=== PATIENT | male | born 1950 | race Caucasian/White ===

== ENCOUNTER 2016-10-22 14:11 | Inpatient (IN) | payer MEDICARE ==
[2016-10-22] MEDS ORDERED: Calcium Carbonate 500 MG ChewTAB PO PRN (19:05)
[2016-10-22] MEDS ORDERED: Loperamide HCl 2 MG CAP PO PRN (19:05)
[2016-10-22] MEDS ORDERED: Guaifenesin DM 100-10/5 ML UDCUP PO PRN (19:05)
[2016-10-22] MEDS ORDERED: Ondansetron ODT 4 MG TAB PO PRN (19:05)
[2016-10-22] MEDS: Meropenem 1 GM in Sodium Chloride 0.9% 100 ML IVPB SCH (20:45)
[2016-10-22] MEDS: Acetaminophen/Codeine 30-300mg Tablet PO PRN (20:46)
[2016-10-22] MEDS ORDERED: Meropenem 1 GM VIAL IVPB SCH (22:00)
--- NOTE | 2016-10-23 03:18 | HP ---
DATE OF ADMISSION: 10/22/2016 HISTORY OF PRESENT ILLNESS: Mr. Reese is a 65-year-old white male that was initially admitted to [facility] on 10/01/2016. Apparently, he fell and fractured his right patella [place]. He was taken to the surgical suite by Dr. Infante and it was repaired. Postoperatively, he rueda s had a felipa course and saw Dr. Infante on the 10/01/2016. He was sent directly to the emergency r oom and admitted to the hospital for an infection. It has not been eating very well. While in the hospital, he had significant debridement by Dr. Infante. He actually had to have a patellar removed because it was nonviable. On 10/07/2016, Dr. Andrew Jaimes took the patient to the surgical suite because of his peripheral teresa ry disease and did endarterectomy and placed 2 stents on the right side. The patient was noted to h ave gangrene in that leg, but after returning to his circulation, he was much improved. Since then, the patient had been seen by Dr. Palumbo and was started on meropenem 1 gram IV piggyback q.8 hours, because he grew several organisms in his wound culture. Cultures from right knee grew: 1. Pseudomonas. 2. Proteus mirabilis. 3. Enterococcus. The patient has actually slowly improved and is stable enough to transfer to a swing bed for continu ed wound care and continue antibiotics. He will also have a wound VAC evaluated and change every Mo , Friday and Friday. Dr. Palumbo recommended at least 4 weeks of antibiotics to the end of October and then the patient wi ll follow up with all other consultants and decide whether or not continue some type of antibiotic t herapy. PAST MEDICAL HISTORY: 1. Significant for hypertension. 2. Gout. 3. Chronic atrial fibrillation. 4. Left leg DVT, followed by Dr. Mcwilliams and Dr. Marinelli. 5. Recent fracture with nonhealing and polymicrobial infection. SURGICAL HISTORY: Reveals; 1. Tonsillectomy in 1956. 2. Nasal surgery in 1963. 3. Patellar repair in 08/26/2016. 4. Patellar debridement and patellectomy, which was done on 10/03/[address] Jaimes's surgery including right common profunda endarterectomy with bovine patch angioplasty, right common iliac, e xternal iliac artery stent with Smart 8 x 30 x2 postdilated with 7 mm balloon that was done on 10/07. SOCIAL HISTORY: Reveals the patient is a smoker. He also drinks quite a bit of alcohol, but uses n o drugs. FAMILY HISTORY: Reveals the patient's father at age 75 of diabetes and hypertension. The jannette ent's mother at the age of 60 of lung cancer and breast cancer, and the patient has a family hi story of diabetes, hypertension, heart disease and cancer. CURRENT MEDICATIONS: Reveal the patient is presently on the following medications which include; 1. Plavix 75 mg daily. 2. Diltiazem CD 120 mg twice a day. 3. Digoxin 125 mcg daily. 4. Xarelto 10 mg daily. 5. Fluoxetine 10 mg daily. 6. Meropenem 1 gram IV piggyback q.8 hours. 7. Folic acid 1 mg daily. 8. Multivitamin daily. 9. Florastor 250 mg daily. 10. Thiamine 100 mg daily. 11. Aspirin 81 mg daily. 12. Protonix 40 mg b.i.d. 13. Flexeril 10 mg t.i.d. p.r.n. muscle spasm. 14. Tylenol with codeine #3 one q.6 hours p.r.n., severe pain. ALLERGIES: The patient has no known drug allergies. REVIEW OF SYSTEMS: Reveal the patient actually is doing very well. He is eating better. He has ga ined 6 pounds over the last week. He denies any fever or chills, denies any headaches. He states he is very weak and he has pain in h is right knee at times. Otherwise, he denies any visual changes, denies any hearing changes or ignacia rgy problems. Denies any increase in cough, cold, congestion or sputum production. Denies any ches t pain, palpitations, racing or skipping heart beat or slow heartbeat. Denies any nausea, vomiting or diarrhea. He states his stomach is actually doing better except he does have some loose stools. He was constipated while he was in the hospital 2 weeks ago. Denies any problems. Denies any a rthritis problems except for right knee pain where he had patellectomy. He does complain of brittle skin and multiple bruising. PHYSICAL EXAMINATION: GENERAL: This is a well-developed, well-nourished, very thin white male in no apparent distress at this time. HEENT: Reveals normocephalic, nontraumatic cranium. Pupils are equally round and reactive. Extrao cular movements are intact. Nose and throat are slightly dry. NECK: Supple, without masses, nodes or bruits. LUNGS: Chest is clear to auscultation, but distant. HEART: Reveals an irregularly irregular rate and rhythm without murmurs, gallops or rubs. ABDOMEN: Soft, nontender, without organomegaly, normal bowel sounds are noted. No rebound or guard ing is noted. : Deferred. EXTREMITIES: Reveal no clubbing, cyanosis or edema. The right leg is braced and has a wound VAC co nnected. PICC line is clear and nontender. NEUROLOGIC: The patient is nonfocal. ASSESSMENT: 1. Polymicrobial postoperative wound infection, surrounding abscess, status post I\T\D, requiring a wound VAC. 2. Severe peripheral artery disease, status post vascular endarterectomy and stents x2. 3. Hypertension. 4. Chronic atrial fibrillation. 5. Chronic anticoagulation. 6. Peripheral vascular disease. 7. Benign prostatic hypertrophy. 8. Calorie protein malnutrition. 9. Generalized weakness. 10. Anxiety depressive disorder. 11. Gout. PLAN: 1. Continue at least 4 more weeks of antibiotics per Dr. Palumbo. 2. Continue physical therapy and occupational therapy as tolerated. The patient is weightbearing a s tolerated. 3. Continue wound care and wound VAC. 4. Continue present medications. 5. Laboratory tomorrow morning. 6. DVT and stress ulcer prophylaxis. 7. Decubitus precautions.
[2016-10-23] MEDS: Acetaminophen/Codeine 30-300mg Tablet PO PRN ×3 (03:55→21:18)
[2016-10-23 05:44] LABS: #Basophils 0.1 thou/uL (0.0-0.2); #Eosinphils 0.2 thou/uL (0.0-0.7); #Lymphocytes 1.1 thou/uL (1.20-3.40); #Neutrophils 6.5 thou/uL (1.40-6.50); %Basophils 1.4 % (0.0-1.0); %Eosinophils 2.4 % (0.0-10.0); %Lymphocytes 12.7 % (21.0-51.0); %Monocytes 10.7 % (0.0-10.0); Hematocrit 29.1 % (42.0-52.0); Mean Platelet Volume 5.2 fL (7.4-10.4); Red Blood Cell (RBC) Count 3.03 mill/uL (4.70-6.10); White Blood Cell (WBC) Count 8.9 thou/uL (4.8-10.8)
[2016-10-23] MEDS: Meropenem 1 GM in Sodium Chloride 0.9% 100 ML IVPB SCH ×3 (06:10→21:19)
[2016-10-23 06:24] LABS: ALT (SGPT) 15 U/L (0-55); AST (SGOT) 17 U/L (5-34); Alkaline Phosphatase 85 U/L (40-150); Anion Gap 12 mmol/L (10-20); BUN (Urea Nitrogen) 15 mg/dL (8.4-25.7); Bilirubin, Total 0.5 mg/dL (0.2-1.2); Calc. Creatinine Clearance 106 mL/min (70-130); Calcium 8.6 mg/dL (7.8-10.44); Carbon Dioxide 25 mmol/L (23-31); Chloride 108 mmol/L (98-107); Estimated GFR-MDRD Greater than 90; Globulin 3.2 g/dL (2.4-3.5)
[2016-10-23] MEDS: Multivitamin W/ Minerals 1 TAB PO SCH (08:58)
[2016-10-23] MEDS: Saccharomyces boulardii 250 MG CAP PO SCH (08:58)
[2016-10-23] MEDS: FLUoxetine HCl 10 MG CAP PO SCH (08:58)
[2016-10-23] MEDS: Clopidogrel Bisulfate 75 MG TAB PO SCH (08:59)
[2016-10-23] MEDS: Rivaroxaban 10 MG TAB PO SCH (08:59)
[2016-10-23] MEDS: Folic Acid 1 MG TAB PO SCH (09:01)
[2016-10-23] MEDS: Digoxin 0.125 MG TAB PO SCH (09:01)
[2016-10-23] MEDS: Acetaminophen 325 MG TAB PO PRN (09:57)
[2016-10-23] MEDS: Cyclobenzaprine 10 MG TAB PO PRN (09:57)
--- NOTE | 2016-10-23 21:34 | PRG ---
DATE OF SERVICE: 10/23/2016 HISTORY OF PRESENT ILLNESS: Mr. Yeager is a very pleasant 65-year-old white male admitted to [facility] after he fell, fractured his right patella. Eventually, it did not heal after a surgi yesika repair of that. He is having patella removed and wound VAC placed. Dr. Jaimes also did a surgic al peripheral artery endarterectomy and two stents on the right side. He was transferred here for p hysical therapy and occupational therapy. He had been growing several organisms including Pseudomon as, Proteus and Enterococcus. He is presently on meropenem 1 gram q.8 hours. SUBJECTIVE: The patient states he is eating better, he is feeling better, he is much stronger. He has no complaints today. PHYSICAL EXAMINATION: VITAL SIGNS: Reveal blood pressure is 140/91, pulse 72, respirations 18, O2 sat 99% on room air. T -max is 97.4. GENERAL: This is a well-developed, very thin white male in no apparent distress at this time. HEENT: Reveals normocephalic, nontraumatic cranium. Pupils are equally round and reactive. Extrao cular movements are intact. Nose and throat are slightly dry. NECK: Supple, without masses, nodes or bruits. LUNGS: Chest is clear to auscultation. No rales, rhonchi or wheezes are heard. HEART: Reveals a distant, irregularly irregular rate and rhythm without murmurs, gallops or rubs. ABDOMEN: Scaphoid, soft, nontender, without organomegaly, normal bowel sounds are noted. No reboun d or guarding is noted. GENITOURINARY: Deferred. EXTREMITIES: Reveal right leg is still braced with the wound VAC connected. PICC line is cleared a nd nontender. Patient did get in a wheelchair today. NEUROLOGIC: He is nonfocal. IMPRESSION: 1. Polymicrobial postoperative wound infection with surrounding abscess status post incision and dr navarrete requiring wound VAC. 2. Severe peripheral artery disease status post vascular endarterectomy, stents x2. 3. Hypertension. 4. Chronic atrial fibrillation. 5. Chronic anticoagulation. 6. Peripheral vascular disease. 7. Benign prostatic hypertrophy. 8. Calorie protein malnutrition. 9. Generalized weakness. 10. Anxiety depressive disorder. 11. Gout. PLAN: 1. Continue at least 4 more weeks of antibiotics, meropenem per Dr. Palumbo. 2. Continue physical therapy and occupational therapy. 3. Continue wound care, wound VAC. 4. Continue present medications. 5. Laboratory is pending. 6. DVT and stress ulcer prophylaxis. 7. Decubitus precautions.
[2016-10-24] MEDS: Acetaminophen/Codeine 30-300mg Tablet PO PRN ×3 (05:21→20:59)
[2016-10-24] MEDS: Meropenem 1 GM in Sodium Chloride 0.9% 100 ML IVPB SCH ×3 (05:22→21:00)
[2016-10-24] MEDS: Digoxin 0.125 MG TAB PO SCH (08:27)
[2016-10-24] MEDS: Saccharomyces boulardii 250 MG CAP PO SCH (08:27)
[2016-10-24] MEDS: FLUoxetine HCl 10 MG CAP PO SCH (08:27)
[2016-10-24] MEDS: Rivaroxaban 10 MG TAB PO SCH (08:28)
[2016-10-24] MEDS: Multivitamin W/ Minerals 1 TAB PO SCH (08:28)
[2016-10-24] MEDS: Clopidogrel Bisulfate 75 MG TAB PO SCH (08:28)
[2016-10-24] MEDS: Folic Acid 1 MG TAB PO SCH (08:28)
[2016-10-24] MEDS: Acetaminophen 325 MG TAB PO PRN (08:39)
[2016-10-24] MEDS: Cyclobenzaprine 10 MG TAB PO PRN (08:39)
--- NOTE | 2016-10-24 20:13 | PRG ---
DATE OF SERVICE: 10/24/2016 DATE OF ADMISSION: 10/22/2016 HISTORY OF PRESENT ILLNESS: Mr. Reese is a very pleasant 65-year-old white male that fell and frac tured his right patella. He had surgically repaired, but became infected and was eventually removed . He also had significant peripheral artery disease and had 2 stents and right sided endarterectomy by Dr. Jaimes. Eventually, was stabilized and transferred to physical therapy and occupational health and safety officer apy at [facility]. He was also noted be growing Pseudomonas, Proteus and Enterococcus in his wounds, so he is on meropenem 1 gram every [address] Palumbo. SUBJECTIVE: The patient is doing better today. He is feeling better. He did go to hyperbaric eval uation by Dr. Woods. They evaluated and repacked his wound and have him scheduled for another off ice visit on Friday about 10:30. He has no complaints. VITAL SIGNS: Revealed blood pressure this morning 148/92, pulse 72-93, respirations 18, O2 saturati on 98%, temperature 98.0. PHYSICAL EXAMINATION: GENERAL: This is a well-developed, very thin white male who is eating much better, in no apparent d istress at this time. HEENT: Reveals normocephalic, nontraumatic cranium. Pupils are equally round. Nose and throat are slightly dry. NECK: Supple, without masses, nodes or bruits. CHEST: Clear to auscultation. No rales, rhonchi or wheezes are heard. HEART: Irregularly irregular rate and rhythm without murmurs, gallops or rubs. ABDOMEN: Scaphoid, soft, nontender, without organomegaly. GENITOURINARY: Deferred. EXTREMITIES: Reveal right leg still in the brace, wound VAC reconnected, and a PICC line is clear a nd nontender. NEUROLOGIC: Nonfocal. IMPRESSION: 1. Polymicrobial postop wound infection with surrounding abscess status post incision and drainage requiring wound VAC. Incision of the patella has been done. 2. Severe peripheral artery disease status post vascular endarterectomy and stents x2 by Dr. Jaimes. 3. Hypertension. 4. Chronic atrial fibrillation. 5. Chronic anticoagulation because of atrial fibrillation. 6. Peripheral vascular disease. 7. Benign prostatic hypertrophy. 8. Calorie protein malnutrition. 9. Generalized weakness. 10. Anxiety depressive disorder. 11. Gout. PLAN: 1. Four weeks of meropenem 1 gram every [address] Palumbo. 2. Continue physical therapy and occupational. 3. Continue wound care and wound VAC. 4. Appreciate consult from Dr. Woods. 5. Continue present medications. 6. Continue deep venous thrombosis and stress ulcer prophylaxis. 7. Continue decubitus precaution. 8. Continue to encourage the patient to eat well. 9. Continue chronic anticoagulation.
[2016-10-25] MEDS: Cyclobenzaprine 10 MG TAB PO PRN ×2 (01:43→09:56)
[2016-10-25] MEDS: Acetaminophen 325 MG TAB PO PRN ×2 (01:43→09:56)
[2016-10-25] MEDS: Meropenem 1 GM in Sodium Chloride 0.9% 100 ML IVPB SCH ×3 (05:18→21:40)
[2016-10-25] MEDS: Acetaminophen/Codeine 30-300mg Tablet PO PRN ×3 (05:18→22:58)
[2016-10-25] MEDS: Clopidogrel Bisulfate 75 MG TAB PO SCH (08:40)
[2016-10-25] MEDS: FLUoxetine HCl 10 MG CAP PO SCH (08:40)
[2016-10-25] MEDS: Rivaroxaban 10 MG TAB PO SCH (08:40)
[2016-10-25] MEDS: Multivitamin W/ Minerals 1 TAB PO SCH (08:40)
[2016-10-25] MEDS: Folic Acid 1 MG TAB PO SCH (08:40)
[2016-10-25] MEDS: Digoxin 0.125 MG TAB PO SCH (08:41)
[2016-10-25] MEDS: Saccharomyces boulardii 250 MG CAP PO SCH (08:42)
--- NOTE | 2016-10-25 15:20 | PRG ---
DATE OF ADMISSION: 10/22/2016 DATE OF SERVICE: 10/25/2016 HISTORY OF PRESENT ILLNESS: Mr. Reese is a 65-year-old pleasant white male who fell and fractured his right patella. He had a surgical repair became infected. He developed a significant infection abscess and actually had his patellar movement. Also was found to have significant peripheral arter y disease and had 2 stents in right side endarterectomy, lower extremity endarterectomy done by Dr. Jaimes. Eventually stabilized and transferred to [facility] for physical therapy and occupational therapy. He has been noted to be growing Pseudomonas, Proteus, Enterococcus, was star gurdeep on meropenem 1 gram q[address] Palumbo for a month. SUBJECTIVE: The patient has no complaints today, states he is eating well. He is feeling better. He had a good bowel movement this morning. Wound care just repacked his wound says is looking well. OBJECTIVE: VITAL SIGNS: Blood pressure is 152/85 this morning, pulse 87 and 96, respirations 20, O2 sat 93%, t emperature max is 97.0. Wound cultures revealed no growth at 36 hours. GENERAL: This is a well-developed, well-nourished, very pleasant, thin white male in no apparent di stress at this time. HEENT: Reveals normocephalic, nontraumatic cranium. Pupils are equally round and reactive. Extrao cular movements intact. Nose and throat slightly dry. NECK: Supple, without masses, nodes or bruits. CHEST: Clear to auscultation. No rales, rhonchi, wheezes are heard. HEART: Reveals a regular rate and rhythm without murmurs, gallops or rubs. ABDOMEN: Soft, nontender, without organomegaly, normal bowel sounds are noted. No rebound or guard ing is noted. : Deferred. EXTREMITIES: Reveal no clubbing, cyanosis or edema. Right leg is still brace. Wound VAC is still working. PICC line is still working. NEUROLOGIC: Patient is nonfocal. IMPRESSION: 1. Polymicrobial postop wound infection with surrounding abscess status post incision and drainage. Wound VAC still needed. Patella has been removed. 2. Severe peripheral artery disease status post vascular endarterectomy and stents x2 by Dr. Jaimes. 3. Hypertension. 4. Chronic atrial fibrillation. 5. Chronic anticoagulation because of atrial fibrillation. 6. Peripheral vascular disease. 7. Benign prostatic hypertrophy. 8. Rosa Isela protein malnutrition. 9. Generalized weakness. 10. Anxiety depressive disorder. 11. Gout. PLAN: 1. Four weeks of meropenem 1 gram q.[address] Palumbo. 2. Continue physical therapy and occupational therapy. 3. Continue wound care and wound VAC. 4. Appreciate consult from Dr. Woods. 5. Continue present medication. 6. Continue deep venous thrombosis and stress ulcer prophylaxis. 7. Continue decubitus precautions. 8. Continued care. 9. Continue chronic anticoagulation.
[2016-10-26] MEDS: Meropenem 1 GM in Sodium Chloride 0.9% 100 ML IVPB SCH ×3 (06:13→21:30)
[2016-10-26] MEDS: Folic Acid 1 MG TAB PO SCH (09:13)
[2016-10-26] MEDS: Saccharomyces boulardii 250 MG CAP PO SCH (09:14)
[2016-10-26] MEDS: FLUoxetine HCl 10 MG CAP PO SCH (09:14)
[2016-10-26] MEDS: Digoxin 0.125 MG TAB PO SCH (09:14)
[2016-10-26] MEDS: Clopidogrel Bisulfate 75 MG TAB PO SCH (09:15)
[2016-10-26] MEDS: Multivitamin W/ Minerals 1 TAB PO SCH (09:15)
[2016-10-26] MEDS: Rivaroxaban 10 MG TAB PO SCH (09:15)
[2016-10-26] MEDS: Acetaminophen 325 MG TAB PO PRN (09:16)
[2016-10-26] MEDS: Milk Of Magnesia 30 ML UDCUP PO PRN (18:37)
[2016-10-26] MEDS: Acetaminophen/Codeine 30-300mg Tablet PO PRN (22:18)
--- NOTE | 2016-10-26 23:43 | PRG ---
DATE OF SERVICE: 10/26/2016 HISTORY: Mr. Reese is a very pleasant 65-year-old white male who fell fracturing right patella. H e was surgically repaired, but then became infected. He was admitted to [facility] and had patella removed. While in the hospital, he had significant peripheral artery disease and Dr. Jaimes did right-sided lower extremity endarterectomy along with 2 stents. He was eventually stabilized a nd transferred to [facility] to continue on meropenem 1 g q.[address] Palumbo for one m ont for him growing Pseudomonas Proteus, Enterococcus in his knee. SUBJECTIVE: The patient states he is doing better. He has no complaints today. He is eating well. He is not constipated and his wound is less painful. OBJECTIVE: VITAL SIGNS: Today, reveal blood pressure this morning 134/70, pulse 89-98, respirations 20, O2 sat uration 97%. T-max is 96.6. GENERAL: This is a well-developed, well-nourished, thin white male in no apparent distress at this time. HEENT: Reveals normocephalic, nontraumatic cranium. Pupils are equal, round, and reactive. Extrao cular movements intact. Nose and throat slightly dry. NECK: Supple, without masses, nodes or bruits. CHEST: Clear to auscultation. No rales, rhonchi, wheezes or cough is heard. HEART: Reveals an irregularly irregular rate and rhythm without murmurs, gallops or rubs. ABDOMEN: Soft, nontender, without organomegaly, normal bowel sounds are noted. No rebound or guard ing is noted. GENITOURINARY: Deferred. EXTREMITIES: Reveal no clubbing, cyanosis or edema. Right leg is still braced, wound VAC is still working. PICC line is still working. NEUROLOGIC: The patient is nonfocal. IMPRESSION: 1. Polymicrobial postoperative infection with surrounding abscess status post incision and drainage and removal of the patella. 2. Wound VAC. 3. Severe peripheral artery disease, status post right lower extremity vascular endarterectomy and stents x2 by Dr. Jaimes. 4. Hypertension. 5. Chronic anticoagulation because of atrial fibrillation. 6. Peripheral vascular disease. 7. Benign prostatic hypertrophy. 8. Protein malnutrition. 9. Generalized weakness. 10. Anxiety depressive disorder. 11. Gout. PLAN: 1. Four weeks of meropenem q.[address] Palumbo. 2. Continue physical therapy and occupational therapy. 3. Continue wound care and wound VAC. 4. Appreciate consult from Dr. Woods. 5. Continue present medication. 6. Continue deep venous thrombosis and stress ulcer prophylaxis. 7. Continue decubitus precautions. 8. Continue care. 9. Continued anticoagulation.
[2016-10-27] MEDS: Meropenem 1 GM in Sodium Chloride 0.9% 100 ML IVPB SCH ×3 (06:20→21:50)
--- NOTE | 2016-10-27 08:08 | PRG ---
DATE OF SERVICE: 10/27/2016 HISTORY OF PRESENT ILLNESS: Mr. Reese is a very pleasant 65-year-old white male unfortunately fell and fractured his right patella. He had surgical repair, but unfortunately became infected. He rueda s been admitted back to [place] and had the patella removed. While he is in the hospital, he had significant peripheral artery disease. Dr. Jaimes did a right-sided lower extremity endarterectomy along with two stents. Eventually stabilized and transferred to [facility] to continue his meropenem 1 gram q.[address] Palumbo for one month. He has been growing Pseudomonas, Proteus a nd Enterococcus in his knee. SUBJECTIVE: The patient states he is doing well. His knee does not bother him very much. He has l ess swelling. He is eating well and he has no complaints. PHYSICAL EXAMINATION: VITAL SIGNS: Reveal blood pressure last night was 114/68, pulse 88-98, respirations 19, O2 sat 97%, temperature 96.7. GENERAL: This is a well-developed, well-nourished, very thin white male, in no apparent distress at this time. HEENT: Reveals normocephalic, nontraumatic cranium. Pupils are equally round and reactive. Nose a nd throat are slightly dry. Extraocular movements are intact. NECK: Supple, without masses, nodes or bruits. LUNGS: Chest clear to auscultation. No rales, rhonchi, wheeze or cough is heard. HEART: Reveals an irregularly irregular rate and rhythm without murmurs, gallops or rubs. ABDOMEN: Scaphoid, soft, nontender, without organomegaly, normal bowel sounds are noted. No reboun d or guarding is noted. GENITOURINARY: Deferred. EXTREMITIES: Reveal no clubbing, cyanosis or edema. Right leg is still braced. The patient still has a wound VAC on. PICC line is still working well. NEUROLOGIC: The patient is nonfocal. IMPRESSION: 1. Multiple bacteria including Pseudomonas, Proteus, Enterococcus growing in his knee. 2. Status post abscess, I\T\D and removal of patella. 3. Continue wound VAC. 4. Severe peripheral artery disease, status post right lower extremity vascular endarterectomy, hien nts x2 by Dr. Jaimes. 5. Hypertension. 6. Chronic anticoagulation because of atrial fibrillation on Xarelto. 7. Peripheral vascular disease. 8. Benign prostatic hypertrophy. 9. Protein malnutrition. 10. Generalized weakness. 11. Anxiety and depressive disorder. 12. Gout. PLAN: 1. Continue for full 4 weeks of meropenem q.[address] Palumbo. 2. Continue physical therapy and occupational therapy. 3. Continue wound care and wound VAC. 4. Continue present medications. 5. Continue deep venous thrombosis and stress ulcer prophylaxis. 6. Continue decubitus care. 7. Continue anticoagulation. 8. The patient has appointment tomorrow morning with Dr. Woods for TCOMs at 10:30.
[2016-10-27] MEDS: Saccharomyces boulardii 250 MG CAP PO SCH (08:55)
[2016-10-27] MEDS: Clopidogrel Bisulfate 75 MG TAB PO SCH (08:56)
[2016-10-27] MEDS: Digoxin 0.125 MG TAB PO SCH (08:57)
[2016-10-27] MEDS: Rivaroxaban 10 MG TAB PO SCH (08:57)
[2016-10-27] MEDS: Folic Acid 1 MG TAB PO SCH (08:57)
[2016-10-27] MEDS: Multivitamin W/ Minerals 1 TAB PO SCH (08:58)
[2016-10-27] MEDS: FLUoxetine HCl 10 MG CAP PO SCH (08:58)
[2016-10-27] MEDS: Acetaminophen 325 MG TAB PO PRN ×2 (11:23→21:57)
[2016-10-27] MEDS: Acetaminophen/Codeine 30-300mg Tablet PO PRN (20:12)
[2016-10-27] MEDS: Cyclobenzaprine 10 MG TAB PO PRN (21:49)
[2016-10-28] MEDS: Meropenem 1 GM in Sodium Chloride 0.9% 100 ML IVPB SCH ×3 (05:54→21:35)
[2016-10-28] MEDS: Folic Acid 1 MG TAB PO SCH (08:10)
[2016-10-28] MEDS: Rivaroxaban 10 MG TAB PO SCH (08:10)
[2016-10-28] MEDS: Digoxin 0.125 MG TAB PO SCH (08:10)
[2016-10-28] MEDS: Saccharomyces boulardii 250 MG CAP PO SCH (08:10)
[2016-10-28] MEDS: Clopidogrel Bisulfate 75 MG TAB PO SCH (08:10)
[2016-10-28] MEDS: Multivitamin W/ Minerals 1 TAB PO SCH (08:11)
[2016-10-28] MEDS: FLUoxetine HCl 10 MG CAP PO SCH (08:11)
[2016-10-28] MEDS: Acetaminophen/Codeine 30-300mg Tablet PO PRN ×2 (08:16→16:38)
[2016-10-28] MEDS: Acetaminophen 325 MG TAB PO PRN ×3 (08:16→21:35)
--- NOTE | 2016-10-28 12:23 | PRG ---
DATE OF SERVICE: 10/28/2016 HISTORY OF PRESENT ILLNESS: Mr. Reese is a very pleasant 65-year-old white male that unfortunately fell and fractured right patella. He had surgical repair, but unfortunately became infected. He c alexa back to [place] and had a patellar removed. While in the hospital, he also had significant p eripheral artery disease, seen by Dr. Jaimes, did right-sided lower extremity endarterectomy along wi th 2 stents. Eventually stabilized and transferred to [facility] for continued julieta penem every 8 hours till end of October per Dr. Palumbo. He was growing Pseudomonas, Proteus, and En terococcus. Today, he is going to see Dr. Woods for T-COM for evaluation for hyperbaric treatment. He has no complaints today. PHYSICAL EXAMINATION: VITAL SIGNS: Today reveals blood pressure this morning, pending. Yesterday was 117/67, pulse 77, r espirations 19, O2 saturation 96%, and temperature 97.4. GENERAL: This is a well-developed, well-nourished, very pleasant white male in no apparent distress at this time. HEENT: Reveals normocephalic, nontraumatic cranium. Pupils equal, round, and reactive. Extraocula r movements intact. Nose and throat are dry. The patient has multiple dental caries. Extraocular movements are intact. NECK: Supple, without masses, nodes or bruits. LUNGS: Chest is clear but distant. No rales, rhonchi, wheezes or cough is heard. CARDIOVASCULAR: Reveals an irregularly irregular rate and rhythm, but no murmurs, gallops or rubs a re noted. ABDOMEN: Scaphoid, soft, nontender, without organomegaly, normal bowel sounds are noted. No reboun d or guarding is noted. GENITOURINARY: Deferred, incision in the right groin area is much improved. EXTREMITIES: Reveal no clubbing, cyanosis or edema. Right leg is still braced. The patient still has a wound VAC on, PICC line is still working well. NEUROLOGIC: The patient is nonfocal. IMPRESSION: 1. Bacterial infection in the right knee, growing Pseudomonas, Proteus, and Enterococcus. 2. Continue meropenem 1 gram q.[address] Palumbo. 3. Status post abscess incision and drainage and removal of patella. 4. Continue wound VAC. 5. Severe peripheral artery disease status post right lower extremity vascular endarterectomies hien nts x2 by Dr. Jaimes. 6. Hypertension. 7. Chronic anticoagulation because of atrial fibrillation on Xarelto. 8. Peripheral vascular disease. 9. Benign prostatic hypertrophy. 10. Protein malnutrition. 11. Generalized weakness. 12. Gout. 13. Anxiety depressive disorder. PLAN: 1. Continue meropenem today till end of month per Dr. Palumbo. 2. Continue physical therapy and occupational therapy. 3. Continue wound care and wound VAC. 4. Continue present medication. 5. Continue deep venous thrombosis and stress ulcer prophylaxis. 6. Continue decubitus care. 7. Continue anticoagulation. 8. Seeing Dr. Woods, he comes about 10:30.
[2016-10-29] MEDS: Meropenem 1 GM in Sodium Chloride 0.9% 100 ML IVPB SCH ×3 (05:21→21:45)
[2016-10-29] MEDS: Acetaminophen/Codeine 30-300mg Tablet PO PRN ×2 (05:21→19:47)
[2016-10-29] MEDS: Clopidogrel Bisulfate 75 MG TAB PO SCH (08:54)
[2016-10-29] MEDS: Saccharomyces boulardii 250 MG CAP PO SCH (08:58)
[2016-10-29] MEDS: Rivaroxaban 10 MG TAB PO SCH (08:59)
[2016-10-29] MEDS: FLUoxetine HCl 10 MG CAP PO SCH (08:59)
[2016-10-29] MEDS: Folic Acid 1 MG TAB PO SCH (08:59)
[2016-10-29] MEDS: Digoxin 0.125 MG TAB PO SCH (09:00)
[2016-10-29] MEDS: Multivitamin W/ Minerals 1 TAB PO SCH (09:01)
--- NOTE | 2016-10-29 10:24 | PRG ---
DATE OF SERVICE: 10/29/2016 SUBJECTIVE: Mr. Reese is a pleasant 65-year-old male that unfortunately fell and fractured his rig ht patella. He had it surgically repaired, but he became infected. He was sent back to [place] and had his patellar removed. He also had significant peripheral artery disease and Dr. Jaimes did r ight-sided lower extremity endarterectomy along with 2 stents. He eventually stabilized and transfe rred to [facility] for continued physical therapy, occupational therapy and meropene m every 8 hours until the end of October per Dr. Palumbo. He was growing Pseudomonas Proteus and Ent erococcus. He did see Dr. Woods yesterday for TCOMS and evaluated and felt that his O2 sats were excellent in his extremities. He did not need hyperbaric oxygen treatment. He has no complaints today. VITAL SIGNS: Blood pressure this morning was 119/75, pulse 76-87, respirations 18-20, O2 sat 96-98% . T-max is 96.8. PHYSICAL EXAMINATION: GENERAL: This is a well-developed, well-nourished, very pleasant white male in no apparent distress at this time. HEENT: Reveals normocephalic, nontraumatic cranium. Pupils are equally round and reactive. Extrao cular movements intact. Nose and throat slightly dry. NECK: Supple, without masses, nodes or bruits. LUNGS: Chest is clear to auscultation. No rales, no rhonchi, no wheezes are heard. CARDIOVASCULAR: Reveals an irregularly irregular rate and rhythm without murmurs, gallops or rubs. ABDOMEN: Scaphoid, soft, nontender, without organomegaly, normal bowel sounds are noted. No reboun d or guarding is noted. : Deferred. Incision in the right groin still improving and not red or swollen. EXTREMITIES: Reveal no clubbing, cyanosis or edema. Right leg is still braced at the knee. Wound VAC is still in place. PICC line is still working well. NEUROLOGIC: The patient is nonfocal. IMPRESSION: 1. Bacterial infection and right knee growing Pseudomonas Proteus and Enterococcus. 2. Continue meropenem 1 gram q[address] Palumbo until the end of the month. 3. Status post incision and drainage and removal of patella secondary to infection. 4. Continue wound VAC. 5. Severe peripheral artery disease status post right lower extremity vascular endarterectomies and stents x2 by Dr. Jaimes. 6. Hypertension. 7. Chronic anticoagulation because of atrial fibrillation on Xarelto. 8. Peripheral vascular disease. 9. Benign prostatic hypertrophy. 10. Malnutrition. 11. Generalized weakness. 12. Gout. 13. Anxiety depressive disorder. PLAN: 1. Continue meropenem q.8 hours until the end of the month. 2. Continue physical therapy and occupational therapy. 3. Continue wound care and wound VAC. 4. Continue present medications. 5. Continue DVT and stress ulcer prophylaxis. 6. Continue decubitus care. 7. Continue anticoagulation. 8. No hyperbaric.
[2016-10-29] MEDS: Cyclobenzaprine 10 MG TAB PO PRN (21:45)
[2016-10-30] MEDS: Acetaminophen/Codeine 30-300mg Tablet PO PRN ×2 (04:50→22:10)
[2016-10-30] MEDS: Meropenem 1 GM in Sodium Chloride 0.9% 100 ML IVPB SCH ×3 (06:20→21:06)
[2016-10-30] MEDS: Folic Acid 1 MG TAB PO SCH (09:49)
[2016-10-30] MEDS: Saccharomyces boulardii 250 MG CAP PO SCH (09:49)
[2016-10-30] MEDS: Rivaroxaban 10 MG TAB PO SCH (09:49)
[2016-10-30] MEDS: FLUoxetine HCl 10 MG CAP PO SCH (09:49)
[2016-10-30] MEDS: Multivitamin W/ Minerals 1 TAB PO SCH (09:49)
[2016-10-30] MEDS: Clopidogrel Bisulfate 75 MG TAB PO SCH (09:50)
[2016-10-30] MEDS: Digoxin 0.125 MG TAB PO SCH (09:50)
--- NOTE | 2016-10-30 11:27 | PRG ---
DATE OF SERVICE: 10/30/2016 HISTORY OF PRESENT ILLNESS: Mr. Reese is a very pleasant 65-year-old white male that was transferr ed from [facility] after he had a significant patella infection and the patella was removed . He has also had significant peripheral artery disease and Dr. Jaimes did a right-sided lower extre mity endarterectomy along with 2 stents. The patient stabilized and transferred to [facility] for continued physical therapy, occupational therapy, and for antibiotic therapy of merop enem every 8 hours until the end of October per Dr. Palumbo. He was growing Pseudomonas, Proteus, En terococcus in that infection. I did talk with Dr. Woods yesterday. We had a significant discussion about his O2 sats and they w ere good and he did not really qualify for hyperbarics and he did not want to do hyperbarics and she felt that was appropriate. I talked with her again this morning when I ran into her in the [facility]. OBJECTIVE: Vital signs this morning reveals blood pressure 111/74, pulse 78-87, respirations 19-20, O2 sat 96-97%, T-max 97.7. PHYSICAL EXAMINATION: GENERAL: This is a well-developed, well-nourished, pleasant white male in no apparent distress at t his time. HEENT: Reveals normocephalic, nontraumatic cranium. Pupils are equally round and reactive. Extrao cular movements intact. Nose and throat are slightly dry. NECK: Supple, without masses, nodes or bruits. CHEST: Clear to auscultation. No rales, rhonchi or wheezes are heard. CARDIOVASCULAR: Reveals a regular rate and rhythm without murmurs, gallops or rubs. ABDOMEN: Soft, nontender, without organomegaly, normal bowel sounds are noted. No rebound or guard ing is noted. : Deferred. EXTREMITIES: Reveal no clubbing, cyanosis or edema. Right leg is still braced. He just finished h is shower, he is doing well, he is being dry right now. PICC line is still working well, wound VAC is in place. NEUROLOGIC: The patient is nonfocal. IMPRESSION: 1. Bacterial infection of the right knee growing Pseudomonas, Proteus and Enterococcus. 2. On meropenem 1 gram q.8 h. until the end of the month per Dr. Palumbo. 3. Status post incision and drainage and removal of the patella secondary to infection. 4. Wound VAC in place. 5. Severe peripheral artery disease status post right lower extremity vascular endarterectomy and s tents x2 by Dr. Jaimes. 5. Hypertension. 6. Chronic anticoagulation because of atrial fibrillation on Xarelto. 7. Peripheral vascular disease. 8. Benign prostatic hypertrophy. 9. Malnutrition. 10. Generalized weakness. 11. Gout. 12. Anxiety depressive disorder. PLAN: 1. Continue meropenem q.8 hours until the end of the month. 2. Continue physical therapy and occupational therapy. 3. Continue wound care and wound VAC. 4. Continue present medications. 5. Continue deep venous thrombosis and stress ulcer prophylaxis. 6. Continue decubitus care. 7. Continue anticoagulation. 8. Hyperbaric is not indicated at this time.
[2016-10-30] MEDS: Acetaminophen 325 MG TAB PO PRN (16:30)
[2016-10-30] MEDS: Cyclobenzaprine 10 MG TAB PO PRN (22:10)
[2016-10-31] MEDS: Meropenem 1 GM in Sodium Chloride 0.9% 100 ML IVPB SCH ×3 (05:43→21:36)
[2016-10-31] MEDS: Acetaminophen/Codeine 30-300mg Tablet PO PRN ×3 (08:12→21:37)
[2016-10-31] MEDS: Saccharomyces boulardii 250 MG CAP PO SCH (08:15)
[2016-10-31] MEDS: Multivitamin W/ Minerals 1 TAB PO SCH (08:15)
[2016-10-31] MEDS: Clopidogrel Bisulfate 75 MG TAB PO SCH (08:15)
[2016-10-31] MEDS: Digoxin 0.125 MG TAB PO SCH (08:16)
[2016-10-31] MEDS: Rivaroxaban 10 MG TAB PO SCH (08:17)
[2016-10-31] MEDS: FLUoxetine HCl 10 MG CAP PO SCH (08:17)
[2016-10-31] MEDS: Folic Acid 1 MG TAB PO SCH (08:18)
--- NOTE | 2016-10-31 12:24 | PRG ---
DATE OF SERVICE: 10/31/2016 HISTORY OF PRESENT ILLNESS: The patient is a 65-year-old white male that fell and fractured his pat florentin. He was taken to [facility] where he had that repaired. Postoperatively, he got a pa tellar infection and had to go back to the hospital and the patella was removed along with culture a nd sensitivities done. He is growing Pseudomonas Proteus and Enterococcus. The patient was transfe rred here for meropenem 1 gram every 8 hours until the end of October per Dr. Palumbo. The patient has no complaints. He states he is doing much better. He is beginning to transfer much better. VITAL SIGNS: Blood pressure this morning 124/77, pulse of 71 to 83, respirations 20-22, O2 sat 98%, temperature 97.2. PHYSICAL EXAMINATION: GENERAL: This is a well-developed, well-nourished, very thin, almost cachectic white male in no adiel arent distress at this time. HEENT: Reveals normocephalic, nontraumatic cranium. Pupils are equally round and reactive. Extrao cular movements intact. Nose and throat slightly dry. NECK: Supple, without masses, nodes or bruits. CHEST: Clear to auscultation. No rales, rhonchi or wheezes are heard. CARDIOVASCULAR: Reveals a regular rate and rhythm without murmurs, gallops or rubs. ABDOMEN: Scaphoid, soft, nontender, without organomegaly, normal bowel sounds are noted. : Deferred. EXTREMITIES: Reveal no clubbing, cyanosis or edema. Right leg is still braced. He is doing well. He is sitting up in the chair. His PICC line is working well. NEUROLOGIC: He is nonfocal. IMPRESSION: 1. Bacterial infection of the right knee growing Pseudomonas Proteus and Enterococcus. 2. Meropenem 1 gram q.8 h. until the end of the month per Dr. Palumbo. 3. Status post incision and drainage and removal of the patella secondary to infection. 4. Wound VAC placed 5. Severe peripheral artery disease status post right lower extremity vascular endarterectomy and s tents x2 by Dr. Jaimes about 3 weeks ago. 6. Hypertension. 7. Chronic anticoagulation because of atrial fibrillation, on Xarelto. 8. Peripheral vascular disease. 9. Benign prostatic hypertrophy. 10. Malnutrition. 11. Generalized weakness. 12. Gout. 13. Acute anxiety depressive disorder. PLAN: 1. Continue meropenem q.8 hours until the end of the month. 2. Continue physical therapy and occupational therapy. 3. Continue wound care, wound VAC. 4. Continue present medications. 5. Continued deep venous thrombosis and stress ulcer prophylaxis. 6. Continue decubitus care. 7. Continue anticoagulation. 8. Hyperbaric is not indicated.
[2016-10-31] MEDS: Cyclobenzaprine 10 MG TAB PO PRN ×2 (15:03→21:36)
[2016-11-01] MEDS: Acetaminophen/Codeine 30-300mg Tablet PO PRN ×3 (03:06→15:47)
[2016-11-01] MEDS: Cyclobenzaprine 10 MG TAB PO PRN ×2 (03:07→15:47)
[2016-11-01] MEDS: Meropenem 1 GM in Sodium Chloride 0.9% 100 ML IVPB SCH ×3 (05:29→21:48)
[2016-11-01 06:10] LABS: #Basophils 0.1 thou/uL (0.0-0.2); #Eosinphils 0.4 thou/uL (0.0-0.7); #Lymphocytes 1.3 thou/uL (1.20-3.40); #Monocytes 1.2 thou/uL (0.11-0.59); #Neutrophils 5.8 thou/uL (1.40-6.50); %Basophils 1.5 % (0.0-1.0); %Eosinophils 4.4 % (0.0-10.0); %Lymphocytes 14.8 % (21.0-51.0); %Monocytes 13.1 % (0.0-10.0); Hematocrit 26.7 % (42.0-52.0); Mean Platelet Volume 5.7 fL (7.4-10.4); Red Blood Cell (RBC) Count 2.89 mill/uL (4.70-6.10); White Blood Cell (WBC) Count 8.8 thou/uL (4.8-10.8)
[2016-11-01 06:19] LABS: ALT (SGPT) 15 U/L (0-55); AST (SGOT) 17 U/L (5-34); Alkaline Phosphatase 81 U/L (40-150); Anion Gap 14 mmol/L (10-20); BUN (Urea Nitrogen) 25 mg/dL (8.4-25.7); Bilirubin, Total 0.7 mg/dL (0.2-1.2); Calc. Creatinine Clearance 90 mL/min (70-130); Calcium 8.9 mg/dL (7.8-10.44); Carbon Dioxide 24 mmol/L (23-31); Chloride 103 mmol/L (98-107); Estimated GFR-MDRD Greater than 90; Globulin 3.3 g/dL (2.4-3.5); Protein, Total 6.4 g/dL (5.8-8.1)
[2016-11-01] MEDS: FLUoxetine HCl 10 MG CAP PO SCH (09:15)
[2016-11-01] MEDS: Clopidogrel Bisulfate 75 MG TAB PO SCH (09:15)
[2016-11-01] MEDS: Digoxin 0.125 MG TAB PO SCH (09:17)
[2016-11-01] MEDS: Folic Acid 1 MG TAB PO SCH (09:17)
[2016-11-01] MEDS: Rivaroxaban 10 MG TAB PO SCH (09:18)
[2016-11-01] MEDS: Multivitamin W/ Minerals 1 TAB PO SCH (09:18)
[2016-11-01] MEDS: Saccharomyces boulardii 250 MG CAP PO SCH (09:19)
[2016-11-02] MEDS: Cyclobenzaprine 10 MG TAB PO PRN ×2 (05:04→21:24)
[2016-11-02] MEDS: Acetaminophen/Codeine 30-300mg Tablet PO PRN ×3 (05:04→21:23)
[2016-11-02] MEDS: Meropenem 1 GM in Sodium Chloride 0.9% 100 ML IVPB SCH ×3 (05:47→21:24)
[2016-11-02] MEDS: FLUoxetine HCl 10 MG CAP PO SCH (08:26)
[2016-11-02] MEDS: Clopidogrel Bisulfate 75 MG TAB PO SCH (08:26)
[2016-11-02] MEDS: Saccharomyces boulardii 250 MG CAP PO SCH (08:27)
[2016-11-02] MEDS: Multivitamin W/ Minerals 1 TAB PO SCH (08:27)
[2016-11-02] MEDS: Folic Acid 1 MG TAB PO SCH (08:27)
[2016-11-02] MEDS: Rivaroxaban 10 MG TAB PO SCH (08:27)
[2016-11-02] MEDS: Digoxin 0.125 MG TAB PO SCH (08:27)
--- NOTE | 2016-11-02 13:05 | PRG ---
DATE OF SERVICE: 11/02/2016 SUBJECTIVE: Mr. Reese is doing well. He denies any complaints, resting comfortably, tolerating hi s therapy, right knee in an immobilizer and dressing over the right knee cap. OBJECTIVE: VITAL SIGNS: Mr. Reese is afebrile, heart rate is 93, blood pressure is 125/72, respiratory rate i s 20. CARDIOVASCULAR: S1, S2 plus. RESPIRATORY: Normal vesicular breath sounds. ABDOMEN: Soft, nontender, bowel sounds heard in all quadrants. EXTREMITIES: Without cyanosis or clubbing. Right knee in an immobilizer. No neurovascular comprom ise. He states that he is urinating better. LABORATORY VALUES: From yesterday shows a white count of 8.8, H\T\H is 9.1 and 26.7. Chemistry: S odium 137, potassium 4.0, BUN and creatinine is 25 and 0.74. IMPRESSION: 1. Right knee septic arthritis requiring IV antibiotics. 2. Status post I\T\D and removal of the patella. 3. Peripheral vascular disease. 4. Hypertension. 5. Atrial fibrillation. 6. Benign prostatic hypertrophy. PLAN: 1. Continue IV antibiotics. 2. Wound care. 3. Nutritional support. 4. DVT and stress ulcer prophylaxis. 5. Decubitus precautions. 6. Routine laboratory values.
[2016-11-02] MEDS: Acetaminophen 325 MG TAB PO PRN (13:30)
[2016-11-03] MEDS: Meropenem 1 GM in Sodium Chloride 0.9% 100 ML IVPB SCH ×3 (05:49→21:00)
[2016-11-03] MEDS: Digoxin 0.125 MG TAB PO SCH (08:27)
[2016-11-03] MEDS: Multivitamin W/ Minerals 1 TAB PO SCH (08:27)
[2016-11-03] MEDS: Folic Acid 1 MG TAB PO SCH (08:27)
[2016-11-03] MEDS: Clopidogrel Bisulfate 75 MG TAB PO SCH (08:27)
[2016-11-03] MEDS: Rivaroxaban 10 MG TAB PO SCH (08:28)
[2016-11-03] MEDS: FLUoxetine HCl 10 MG CAP PO SCH (08:28)
[2016-11-03] MEDS: Saccharomyces boulardii 250 MG CAP PO SCH (08:28)
[2016-11-03] MEDS: Acetaminophen 325 MG TAB PO PRN ×2 (10:35→18:07)
[2016-11-03] MEDS: Acetaminophen/Codeine 30-300mg Tablet PO PRN ×2 (10:35→18:07)
--- NOTE | 2016-11-03 14:46 | PRG ---
DATE OF SERVICE: 11/03/2016. SUBJECTIVE: Mr. Reese is doing well, tolerating his antibiotics. Denies any complaints. Wound VA C in place. OBJECTIVE: VITAL SIGNS: He is afebrile, heart rate is 76, respirations are 20, blood pressure is 128/70. CARDIOVASCULAR: S1, S2 plus. RESPIRATORY: Normal vesicular breath sounds. ABDOMEN: Soft, nontender, bowel sounds heard in all quadrants. EXTREMITIES: Some bruising noticed in his left upper extremity. Right knee with immobilizer and a wound VAC in place. IMPRESSION: 1. Right knee septic arthritis, requiring removal of the peripherally inserted central catheter taye e and placement of wound vacuum assisted closure. 2. Peripheral vascular disease. 3. Hypertension. 4. Benign prostatic hypertrophy. 5. Atrial fibrillation. PLAN: 1. Continue current medications. 2. IV antibiotics. 3. Nutritional support. 4. Wound VAC. 5. DVT and stress ulcer prophylaxes. 6. Routine laboratory values. 7. Dr. Juaquin Weldon back tonight.
[2016-11-03] MEDS: Milk Of Magnesia 30 ML UDCUP PO PRN (18:10)
[2016-11-03] MEDS: Cyclobenzaprine 10 MG TAB PO PRN (20:58)
[2016-11-04] MEDS: Cyclobenzaprine 10 MG TAB PO PRN ×3 (06:06→20:16)
[2016-11-04] MEDS: Acetaminophen/Codeine 30-300mg Tablet PO PRN ×3 (06:06→20:16)
[2016-11-04] MEDS: Meropenem 1 GM in Sodium Chloride 0.9% 100 ML IVPB SCH ×3 (06:06→22:10)
[2016-11-04] MEDS: Multivitamin W/ Minerals 1 TAB PO SCH (09:19)
[2016-11-04] MEDS: Saccharomyces boulardii 250 MG CAP PO SCH (09:19)
[2016-11-04] MEDS: FLUoxetine HCl 10 MG CAP PO SCH (09:19)
[2016-11-04] MEDS: Rivaroxaban 10 MG TAB PO SCH (09:19)
[2016-11-04] MEDS: Folic Acid 1 MG TAB PO SCH (09:20)
[2016-11-04] MEDS: Digoxin 0.125 MG TAB PO SCH (09:20)
[2016-11-04] MEDS: Clopidogrel Bisulfate 75 MG TAB PO SCH (09:20)
--- NOTE | 2016-11-04 21:53 | PRG ---
DATE OF SERVICE: 11/04/2016 DATE OF ADMISSION: 10/22/2016 HISTORY OF PRESENT ILLNESS: Mr. Reese is a 65-year-old white male who fractured his patella. He w as taken to the [facility] where it repaired, but postoperatively, he got patellar infectio n. He had to go back to the hospital and patella was removed along with culture and sensitivities d one. It grew Pseudomonas Proteus and Enterococcus. He was eventually transferred to [facility] for physical therapy and occupational therapy and meropenem 1 gram every 8 hours until the end of October per Dr. Palumbo. He has no complaints, seems to be doing much better, and began t o transfer better. He states he has had some spasms this morning rather this afternoon on his ankle and muscle spasm. Otherwise, he has no complaints. PHYSICAL EXAMINATION: VITAL SIGNS: Blood pressure is 124/73, pulse 72-78, respirations 20, O2 sat 98% on room air, and T- max is 97.6. GENERAL: This is a well-developed, well-nourished, very pleasant, thin white male in no apparent di stress at this time. HEENT: Reveals normocephalic, nontraumatic cranium. Pupils are equally round and reactive to light and accommodation. Extraocular movements intact. Nose and throat slightly dry. NECK: Supple, without masses, nodes or bruits. CHEST: Clear to auscultation, no rales, rhonchi, wheezes or cough is heard. CARDIOVASCULAR: Reveals an irregularly irregular rate and rhythm without murmurs, gallops or rubs. ABDOMEN: Scaphoid, soft, nontender, without organomegaly, normal bowel sounds are noted. No reboun d or guarding is noted. : Deferred. EXTREMITIES: Reveal no clubbing, cyanosis or edema. Right leg is still braced. He has no signific ant pain. His PICC line works well. NEUROLOGIC: He still intact. IMPRESSION: 1. Bacterial infection of the right knee growing Proteus Pseudomonas and Enterococcus. 2. Meropenem 1 gram q.8 hours until the end of the month per Dr. Palumbo. 3. Status post incision and drainage and removed patellar secondary to infection. 4. Wound VAC. 5. Severe peripheral arterial disease, status post right lower extremity vascular endarterectomy an d stents x2 by Dr. Jaimes. 6. Hypertension. 7. Chronic atrial fibrillation on chronic anticoagulation. 8. Peripheral vascular disease. 9. Benign prostate hypertrophy. 10. Nutritional malnutrition. 11. Generalized weakness. 12. Gout. 13. Acute anxiety depressive disorder. PLAN: 1. Continue meropenem q.8 hours until end october. 2. Continue physical therapy and occupational therapy. 3. Continue wound care, wound VAC. 4. Continue present medication. 5. Continue DVT and stress ulcer prophylaxis. 6. Continue decubitus care. 7. Continue anticoagulation. 8. Hyperbaric still not indicated.
[2016-11-05] MEDS: Meropenem 1 GM in Sodium Chloride 0.9% 100 ML IVPB SCH ×3 (05:39→21:21)
[2016-11-05] MEDS: Cyclobenzaprine 10 MG TAB PO PRN ×2 (06:35→20:36)
[2016-11-05] MEDS: Acetaminophen/Codeine 30-300mg Tablet PO PRN ×2 (06:35→20:35)
[2016-11-05] MEDS: FLUoxetine HCl 10 MG CAP PO SCH (08:43)
[2016-11-05] MEDS: Saccharomyces boulardii 250 MG CAP PO SCH (08:43)
[2016-11-05] MEDS: Multivitamin W/ Minerals 1 TAB PO SCH (08:44)
[2016-11-05] MEDS: Clopidogrel Bisulfate 75 MG TAB PO SCH (08:45)
[2016-11-05] MEDS: Folic Acid 1 MG TAB PO SCH (08:45)
[2016-11-05] MEDS: Rivaroxaban 10 MG TAB PO SCH (08:45)
[2016-11-05] MEDS: Digoxin 0.125 MG TAB PO SCH (08:45)
--- NOTE | 2016-11-05 10:09 | PRG ---
DATE OF SERVICE: 11/05/2016 HISTORY OF PRESENT ILLNESS: The patient is a 65-year-old white male that fell and had a fractured p atella. He was taken to [place] where it was repaired. Postoperatively, he developed infection and eventually had to have patella removed along with I\T\D. He grew Pseudomonas Proteus and Entero coccus. He was transferred to [facility] for physical therapy, occupational therapy , and IV antibiotics for 1 month. He is followed by Dr. Palumbo for his antibiotics. The patient seems to be doing better. He states he is feeling better. VITAL SIGNS: Blood pressure is 107/68, pulse 72-100, respirations 20, O2 sat 94-95%. T-max is 96.7 . PHYSICAL EXAMINATION: GENERAL: This is a well-developed, well-nourished, very pleasant white male in no apparent distress at this time. HEENT: Reveals normocephalic, nontraumatic cranium. Pupils are equally round. Nose and throat sli ghtly dry. NECK: Supple, without masses, nodes or bruits. CHEST: Clear to auscultation. No rales, rhonchi or wheezes are heard. HEART: Heart reveals an irregularly irregular rate and rhythm without murmurs, gallops or rubs. ABDOMEN: Scaphoid, soft, nontender, without organomegaly, normal bowel sounds are noted. No reboun d or guarding is noted. GENITOURINARY: Exam is deferred. EXTREMITIES: Reveal no clubbing, cyanosis or edema. Right leg is still in a knee immobilizer with a wound VAC. The sutures are supposed to be removed tomorrow. PICC line is still working well. NEUROLOGIC: Patient is intact. No focal deficits. IMPRESSION: 1. Bacterial infection right knee growing Proteus, Pseudomonas and Enterococcus. 2. Continue meropenem 1 gram q.8 h. until the end of the month per Dr. Palumbo. 3. Status post incision and drainage, removal patella secondary to infection. 4. Wound VAC. 5. Severe peripheral arterial disease status post right lower extremity vascular endarterectomy and stents x2 by Dr. Jaimes. 6. Hypertension. 7. Chronic atrial fibrillation. 8. Chronic anticoagulation. 9. Peripheral vascular disease. 10. Benign prostatic hypertrophy. 11. Malnutrition. 12. Generalized weakness. 13. Gout. 14. Anxiety depressive disorder. PLAN: 1. We will continue meropenem q.8 hours 1 gram until the end of October. 2. Continue physical therapy and occupational therapy. 3. Continue DVT and stress ulcer prophylaxis. 4. Continue decubitus preventive care. 5. Wound care, wound VAC. 6. Continue present medications. 7. Continue anticoagulant. 8. Hyperbaric still not indicated.
[2016-11-06] MEDS: Meropenem 1 GM in Sodium Chloride 0.9% 100 ML IVPB SCH ×3 (05:02→21:21)
[2016-11-06] MEDS: Clopidogrel Bisulfate 75 MG TAB PO SCH (08:25)
[2016-11-06] MEDS: FLUoxetine HCl 10 MG CAP PO SCH (08:25)
[2016-11-06] MEDS: Digoxin 0.125 MG TAB PO SCH (08:26)
[2016-11-06] MEDS: Rivaroxaban 10 MG TAB PO SCH (08:26)
[2016-11-06] MEDS: Saccharomyces boulardii 250 MG CAP PO SCH (08:26)
[2016-11-06] MEDS: Folic Acid 1 MG TAB PO SCH (08:26)
[2016-11-06] MEDS: Multivitamin W/ Minerals 1 TAB PO SCH (08:26)
[2016-11-06] MEDS: Acetaminophen 325 MG TAB PO PRN (15:35)
[2016-11-06] MEDS: Acetaminophen/Codeine 30-300mg Tablet PO PRN ×2 (15:35→21:22)
--- NOTE | 2016-11-06 15:41 | PRG ---
DATE OF SERVICE: 11/06/2016 HISTORY OF PRESENT ILLNESS: The patient is a 65-year-old white male that fell at home and fractured his patella. He was taken to [facility] where it was repaired. Postoperatively, he unfor tunately developed an infection, eventually had to have I\T\D and washout done and eventually had th e patella removed. He was growing Pseudomonas, Proteus and Enterococcus. He eventually was transfe rred to [facility] for physical therapy, occupational therapy, and IV antibiotics fo r 1 month to the end of October. He is followed by Dr. Palumbo for his antibiotics. The patient seems to be doing better. He states he is feeling better. He has no complaints today. PHYSICAL EXAMINATION: VITAL SIGNS: Today reveal blood pressure is 125/66, pulse 71-108, respirations 20, O2 sat 98%, temp erature 97.0. GENERAL: This is a very thin white male in no apparent distress at this time. HEENT: Reveals normocephalic, nontraumatic cranium. Pupils are equally round and reactive. Extrao cular movements intact. Nose and throat slightly dry. NECK: Supple, without masses, nodes or bruits. LUNGS: Chest is clear to auscultation. No rales, rhonchi or wheezes are heard. CARDIOVASCULAR: Irregularly irregular rate and rhythm without murmurs, gallops or rubs. ABDOMEN: Scaphoid, soft, nontender, without organomegaly, normal bowel sounds are noted. No reboun d or guarding is noted. GENITOURINARY: Deferred. EXTREMITIES: Reveal no clubbing, cyanosis or edema. The right leg is still immobilized with wound VAC on and minimal drainage. Sutures are to be removed this afternoon with therapy. NEUROLOGIC: Patient is intact. He has no focal deficits. IMPRESSION: 1. Bacterial infection of the right knee growing Pseudomonas, Proteus and Enterococcus. 2. Meropenem 1 gram q.8 h., until the end of the of October per Dr. Palumbo. 3. Status post incision and drainage and removal of the patella secondary to infection. 4. Wound VAC in place and intact. 5. Severe peripheral arterial disease status post right lower extremity vascular endarterectomy and stents x2 by Dr. Jaimes. 5. Hypertension. 6. Chronic atrial fibrillation. 7. Chronic anticoagulation. 8. Peripheral vascular disease. 9. Benign prostatic hypertrophy. 10. Malnutrition. 11. Generalized weakness. 12. Gout. 13. Anxiety depressive disorder. PLAN: 1. Continue meropenem q.8 hours until the end of October. 2. Continue physical therapy and occupational therapy. 3. Continue DVT and stress ulcer prophylaxis. 4. Continue decubitus and wound care. 5. Continue wound care along with VAC care. 6. Continue present medication. 7. Continue anticoagulation. 8. Continue PT.
[2016-11-06] MEDS: Cyclobenzaprine 10 MG TAB PO PRN (21:22)
[2016-11-07] MEDS: Meropenem 1 GM in Sodium Chloride 0.9% 100 ML IVPB SCH ×3 (05:11→21:10)
[2016-11-07] MEDS: Saccharomyces boulardii 250 MG CAP PO SCH (08:22)
[2016-11-07] MEDS: Clopidogrel Bisulfate 75 MG TAB PO SCH (08:22)
[2016-11-07] MEDS: Rivaroxaban 10 MG TAB PO SCH (08:22)
[2016-11-07] MEDS: Multivitamin W/ Minerals 1 TAB PO SCH (08:24)
[2016-11-07] MEDS: Digoxin 0.125 MG TAB PO SCH (08:24)
[2016-11-07] MEDS: Acetaminophen/Codeine 30-300mg Tablet PO PRN ×2 (08:24→21:11)
[2016-11-07] MEDS: Cyclobenzaprine 10 MG TAB PO PRN ×2 (08:24→21:12)
[2016-11-07] MEDS: Folic Acid 1 MG TAB PO SCH (08:25)
[2016-11-07] MEDS: FLUoxetine HCl 10 MG CAP PO SCH (08:25)
[2016-11-07] MEDS: Acetaminophen 325 MG TAB PO PRN (11:19)
--- NOTE | 2016-11-07 23:01 | PRG ---
DATE OF ADMISSION: 10/22/2016 DATE OF PROGRESS NOTE: 11/07/2016 HISTORY OF PRESENT ILLNESS: Mr. Reese is a very pleasant 65-year-old white male that was transferr ed to [facility] status post repair of his fractured patella. He got infected and h ad to have an I\T\D done on admission and patella was removed. He was growing Pseudomonas, Proteus, Enterococcus, and was eventually transferred to [facility] for physical therapy, oc cupational therapy, IV antibiotics for a month. He is followed by Dr. Palumbo. Patient seems to be doing better. He has no complaints. He is eating well. PHYSICAL EXAMINATION: VITAL SIGNS: Today reveal blood pressure 138/76, pulse 80-86, respirations 18, O2 saturation 98%, t emperature 97.3. GENERAL: This is a well-developed, well-nourished, very pleasant, thin white male, in no apparent d istress at this time. HEENT: Reveals normocephalic, nontraumatic cranium. Pupils are equal, round, and reactive. Extrao cular movements intact. Nose and throat are slightly dry. NECK: Supple, without masses, nodes or bruits. CHEST: Clear to auscultation. No rales, rhonchi or wheezes are heard. HEART: Reveals a regular rate and rhythm without murmurs, gallops or rubs. ABDOMEN: Scaphoid, soft, nontender, without organomegaly. Normal bowel sounds are noted. No rebou nd or guarding is noted. : Deferred. EXTREMITIES: Reveal right leg still on the knee immobilizer with wound VAC with minimal drainage. Sutures were removed yesterday. The patient has some rubbing on his knee immobilizer and he has got some extra padding there. NEUROLOGIC: He is intact. He has no focal deficits. IMPRESSION: 1. Bacterial infection of the right knee and patella, growing Pseudomonas, Proteus, Enterococcus. Meropenem 1 gram q.8 h. due at the end of the month of October per Dr. Palumbo. 2. Status post incision and drainage and removal of the patella secondary to infection. Wound VAC in place and intact. 3. Severe peripheral artery disease, status post right lower extremity vascular endarterectomy and stents x2 by Dr. Jaimes. 4. Hypertension. 5. Chronic atrial fibrillation. 6. Chronic anticoagulation. 7. Peripheral vascular disease. 8. Benign prostatic hypertrophy. 9. Malnutrition. 10. Generalized weakness. 11. Gout. 12. Anxiety and depressive disorder. PLAN: 1. Continue meropenem q.8 hours until the end of October. 2. We will continue physical therapy and occupational therapy. 3. Continue DVT and stress ulcer prophylaxis. 4. Continue decubitus and wound care. 5. Continue wound care along with wound VAC care. 6. Continue present medications. 7. Continue anticoagulation. 8. Continue physical therapy.
[2016-11-08] MEDS: Meropenem 1 GM in Sodium Chloride 0.9% 100 ML IVPB SCH ×3 (05:38→21:08)
[2016-11-08] MEDS: Acetaminophen/Codeine 30-300mg Tablet PO PRN ×2 (05:39→21:08)
[2016-11-08] MEDS: Cyclobenzaprine 10 MG TAB PO PRN ×2 (05:40→21:08)
[2016-11-08] MEDS: FLUoxetine HCl 10 MG CAP PO SCH (07:43)
[2016-11-08] MEDS: Clopidogrel Bisulfate 75 MG TAB PO SCH (07:45)
[2016-11-08] MEDS: Rivaroxaban 10 MG TAB PO SCH (07:46)
[2016-11-08] MEDS: Saccharomyces boulardii 250 MG CAP PO SCH (07:46)
[2016-11-08] MEDS: Folic Acid 1 MG TAB PO SCH (07:47)
[2016-11-08] MEDS: Digoxin 0.125 MG TAB PO SCH (07:47)
[2016-11-08] MEDS: Multivitamin W/ Minerals 1 TAB PO SCH (07:47)
[2016-11-08] MEDS: Milk Of Magnesia 30 ML UDCUP PO PRN (12:42)
--- NOTE | 2016-11-08 17:55 | PRG ---
DATE OF SERVICE: 11/08/2016 HISTORY OF PRESENT ILLNESS: Mr. Reese is a pleasant 65-year-old white male that unfortunately fell and fractured the patella. He got infected and had to have an I\T\D done and was admitted for IV a ntibiotics. His patella was eventually removed and he was transferred to [facility] for IV m eropenem 1 gram q.8 hours for 1 month. He grew out Pseudomonas, Proteus and Enterococcus. Subjectively, he has no complaints. He is ready for labs tomorrow. OBJECTIVE: VITAL SIGNS: Blood pressure 132/80, pulse 79-86, respirations 16, O2 saturation 99%. T-max 95.6. GENERAL: This is a well-developed, well-nourished, very thin skinny white male in no apparent distr ess at this time. HEENT: Reveals normocephalic, nontraumatic cranium. Pupils are equally round and reactive. Extrao cular movements intact. Nose and throat slightly dry. NECK: Supple, without masses, nodes or bruits. CHEST: Clear to auscultation. No rales, rhonchi or wheezes are heard. CARDIOVASCULAR: Reveals a regular rate and rhythm without murmurs, gallops or rubs. ABDOMEN: Still scaphoid, soft, nontender, without organomegaly, normal bowel sounds are noted. No rebound or guarding. : Deferred. EXTREMITIES: Reveal right leg still with a knee immobilizer with wound VAC with minimal drainage. Sutures removed a couple days ago. NEUROLOGIC: Intact. No focal deficits. IMPRESSION: 1. Bacterial infection of right knee patellar growing Pseudomonas, Proteus, and Enterococcus. 2. Continue meropenem 1 gram IV q.8 hours to the end of the month per Dr. Palumbo. 3. Status post incision and drainage, removal of patella secondary to infection. 4. Wound VAC in place and working. 5. Severe peripheral arterial disease status post right lower extremity vascular endarterectomy and stents x2 by Dr. Jaimes. 6. Hypertension. 7. Chronic atrial fibrillation. 8. Chronic anticoagulation. 9. Peripheral vascular disease. 10. Benign prostate hypertrophy. 11. Malnutrition. 12. Generalized weakness. 13. Gout. 14. Anxiety depressive disorder. PLAN: 1. Continue meropenem q.8 hours to the end of month. 2. Continue physical therapy and occupational therapy. 3. Continue DVT and stress ulcer prophylaxis. 4. Continue decubitus and wound care. 5. Continue Wound care along with wound VAC. 6. Continue present medications. 7. Continue anticoagulation. 8. Continue physical therapy.
[2016-11-09 05:42] LABS: #Basophils 0.1 thou/uL (0.0-0.2); #Eosinphils 0.4 thou/uL (0.0-0.7); #Lymphocytes 1.2 thou/uL (1.20-3.40); %Basophils 1.4 % (0.0-1.0); %Eosinophils 5.1 % (0.0-10.0); %Lymphocytes 15.4 % (21.0-51.0); %Monocytes 13.1 % (0.0-10.0); Hematocrit 29.8 % (42.0-52.0); Mean Platelet Volume 5.5 fL (7.4-10.4); Red Blood Cell (RBC) Count 3.19 mill/uL (4.70-6.10); White Blood Cell (WBC) Count 7.7 thou/uL (4.8-10.8)
[2016-11-09] MEDS: Meropenem 1 GM in Sodium Chloride 0.9% 100 ML IVPB SCH ×3 (05:51→22:28)
[2016-11-09 05:57] LABS: ALT (SGPT) 21 U/L (0-55); AST (SGOT) 21 U/L (5-34); Alkaline Phosphatase 88 U/L (40-150); Anion Gap 14 mmol/L (10-20); BUN (Urea Nitrogen) 28 mg/dL (8.4-25.7); Bilirubin, Total 0.9 mg/dL (0.2-1.2); Calc. Creatinine Clearance 104 mL/min (70-130); Calcium 9.3 mg/dL (7.8-10.44); Carbon Dioxide 24 mmol/L (23-31); Chloride 104 mmol/L (98-107); Estimated GFR-MDRD Greater than 90; Globulin 3.3 g/dL (2.4-3.5); Protein, Total 6.6 g/dL (5.8-8.1)
[2016-11-09] MEDS: Saccharomyces boulardii 250 MG CAP PO SCH (08:52)
[2016-11-09] MEDS: FLUoxetine HCl 10 MG CAP PO SCH (08:52)
[2016-11-09] MEDS: Digoxin 0.125 MG TAB PO SCH (08:53)
[2016-11-09] MEDS: Folic Acid 1 MG TAB PO SCH (08:53)
[2016-11-09] MEDS: Rivaroxaban 10 MG TAB PO SCH (08:53)
[2016-11-09] MEDS: Clopidogrel Bisulfate 75 MG TAB PO SCH (08:54)
[2016-11-09] MEDS: Multivitamin W/ Minerals 1 TAB PO SCH (08:54)
[2016-11-09] MEDS: Polyethylene Glycol 3350 17 GM Packet PO SCH (08:55)
--- NOTE | 2016-11-09 10:21 | PRG ---
DATE OF SERVICE: 11/09/2016 SUBJECTIVE: Mr. Reese is a very pleasant 65-year-old white male that unfortunately fell and fractu red his patella. He got infected and he had to have an incision and drainage done. He was admitted to [facility] for continued IV meropenem 1 gram q.8 h. for [address] Palumbo. He is jaclyn wing out Pseudomonas, Proteus and Enterococcus. The patient has no complaints today. PHYSICAL EXAMINATION: VITAL SIGNS: Today reveal blood pressure 134/78, pulse 85-95, respirations 18, O2 saturation 98% on room air, T-max 97.6. GENERAL: This is a well-developed, well-nourished, very thin white male, in no apparent distress at this time. HEENT: Reveals normocephalic, nontraumatic cranium. Pupils are equally round and reactive. Extrao cular movements intact. Nose and throat are slightly dry. NECK: Supple, without masses, nodes or bruits. CHEST: Clear to auscultation. No rales, rhonchi, wheezes, or cough is heard. HEART: Irregularly irregular rate and rhythm of chronic atrial fib. ABDOMEN: Scaphoid, soft, nontender, without organomegaly, normal bowel sounds are noted. No reboun d or guarding is noted. : Deferred. EXTREMITIES: Reveal right leg with a knee immobilizer. Wound VAC still in place. NEUROLOGIC: The patient has no focal deficits. IMPRESSION: 1. Bactrim infection of right knee, patella growing Pseudomonas, Proteus and Enterococcus. 2. On meropenem 1 gram IV q.8 h. until the end of the month per Dr. Palumbo. 3. Status post incision and drainage, removal of the patella secondary infection. 4. Wound VAC in place and working. 5. Severe peripheral arterial disease status post right lower extremity vascular endarterectomy and stents x2 by Dr. Jaimes. 6. Chronic atrial fibrillation. 7. Hypertension. 8. Chronic anticoagulation. 9. Peripheral vascular disease. 10. Benign prostate hypertrophy. 11. Malnutrition. 12. Gout. 13. Generalized weakness. 14. Anxiety disorder. PLAN: 1. Continue meropenem q.8 hours until the end of the month. 2. Continue physical therapy and occupational therapy. 3. Continue DVT and stress ulcer prophylaxis. 4. Continue decubitus and wound care. 5. Continue wound care along with wound VAC. 6. Continue present meds. 7. Continue anticoagulation.
[2016-11-09] MEDS: Acetaminophen/Codeine 30-300mg Tablet PO PRN (15:05)
[2016-11-10] MEDS: Meropenem 1 GM in Sodium Chloride 0.9% 100 ML IVPB SCH (05:59)
--- NOTE | 2016-11-10 08:46 | PRG ---
DATE OF SERVICE: 11/10/2016. HISTORY OF PRESENT ILLNESS: Mr. Reese is a very pleasant 65-year-old white male that fell and frac tured his patella. He got infected. He had have an incision and drainage done and was admitted to [facility] for continued meropenem 1 gram q.8 hours for [address] Palumbo. It i s growing out Pseudomonas, Proteus and Enterococcus SUBJECTIVE: He has no complaints today. He states he is doing well. He is not constipated, having a bowel movement every day and has already had one this morning. OBJECTIVE: VITAL SIGNS: This morning revealed blood pressure 113/74, pulse 78-95, respirations 16- 18, O2 saturations 95-99% on room air. T-max is 96.7. PHYSICAL EXAMINATION: GENERAL: This is a well-developed, well-nourished, very thin, cachectic white male, in no apparent distress at this time. HEENT: Reveals normocephalic, nontraumatic cranium. Pupils are equally round and reactive. Extrao cular movements intact. Nose and throat slightly dry. NECK: Supple, without masses, nodes or bruits. CHEST: Clear to auscultation. No rales, rhonchi or wheezes are heard. CARDIOVASCULAR: Reveals an irregularly irregular rate and rhythm of chronic atrial fibrillation. ABDOMEN: Obese, soft, nontender, without organomegaly. Normal bowel sounds are noted. No rebound or guarding is noted. GENITOURINARY: Deferred. EXTREMITIES: Reveal right leg with a knee immobilizer. Wound VAC still in place. NEUROLOGIC: The patient has no focal deficits. IMPRESSION: 1. Continue infection of the right knee growing Pseudomonas, Proteus and Enterococcus. 2. On meropenem 1 gram IV q.8 hours until the end of the month per Dr. Palumbo. 3. Status post incision and drainage, and removal of the patella secondary to infection. 4. Wound vacuum assisted closure in place and working. 5. Severe peripheral arterial disease, status post right lower extremity vascular endarterectomy an d stents x2 by Dr. Jaimes. 6. Chronic atrial fibrillation. 6. Hypertension. 7. Chronic anticoagulation. 8. Peripheral vascular disease. 9. Benign prostatic hypertrophy. 10. Malnutrition. 11. Gout. 12. Generalized weakness. 13. Anxiety disorder. 14. Continue meropenem. PLAN: 1. Continue meropenem q.8 hours until the end of the month. 2. Continue physical therapy and occupational therapy. 3. Continue deep venous thrombosis and stress ulcer prophylaxes. 4. Continue decubitus and wound care. 5. Continue wound care along with the wound VAC. 6. Continue present medications. 7. Continue anticoagulation.
[2016-11-10] MEDS: Acetaminophen/Codeine 30-300mg Tablet PO PRN (08:49)
[2016-11-10] MEDS: Saccharomyces boulardii 250 MG CAP PO SCH ×2 (08:50→08:54)
[2016-11-10] MEDS: Clopidogrel Bisulfate 75 MG TAB PO SCH (08:51)
[2016-11-10] MEDS: Digoxin 0.125 MG TAB PO SCH (08:51)
[2016-11-10] MEDS: FLUoxetine HCl 10 MG CAP PO SCH (08:51)
[2016-11-10] MEDS: Folic Acid 1 MG TAB PO SCH (08:52)
[2016-11-10] MEDS: Multivitamin W/ Minerals 1 TAB PO SCH (08:52)
[2016-11-10] MEDS: Rivaroxaban 10 MG TAB PO SCH (08:53)
[2016-11-10] MEDS: Polyethylene Glycol 3350 17 GM Packet PO SCH (08:53)
[2016-11-11] MEDS: Meropenem 1 GM in Sodium Chloride 0.9% 100 ML IVPB SCH ×5 (05:15→21:01)
[2016-11-11] MEDS: Multivitamin W/ Minerals 1 TAB PO SCH (08:54)
[2016-11-11] MEDS: Folic Acid 1 MG TAB PO SCH (08:54)
[2016-11-11] MEDS: FLUoxetine HCl 10 MG CAP PO SCH (08:54)
[2016-11-11] MEDS: Acetaminophen 325 MG TAB PO PRN ×2 (08:54→21:08)
[2016-11-11] MEDS: Clopidogrel Bisulfate 75 MG TAB PO SCH (08:55)
[2016-11-11] MEDS: Digoxin 0.125 MG TAB PO SCH (08:55)
[2016-11-11] MEDS: Rivaroxaban 10 MG TAB PO SCH (08:55)
[2016-11-11] MEDS: Acetaminophen/Codeine 30-300mg Tablet PO PRN (08:57)
[2016-11-11] MEDS: Saccharomyces boulardii 250 MG CAP PO SCH (08:57)
[2016-11-11] MEDS: Polyethylene Glycol 3350 17 GM Packet PO SCH (08:58)
--- NOTE | 2016-11-11 10:55 | PRG ---
DATE OF SERVICE: 11/11/2016 HISTORY: The patient is a 65-year-old white male that had fractured his patella when he fell. It got infected. He had incision and drainage done and was admitted to [facility] for continue meropenem 1 gram q.8 h for [address] Palumbo. That culture is growing Pseudomonas, Proteus and Enterococcus. SUBJECTIVE: The patient states he has no complaints except he did have some bleeding last night and was repacked, they found no acute bleeding and his wound VAC was replaced. PHYSICAL EXAMINATION: VITAL SIGNS: This morning revealed blood pressure 123/80, pulse 76-79, respirations 18, O2 sat 96-97% room air, temperature 97 degrees. GENERAL: This is a well-developed, thin, emaciated white male in no apparent distress at this time. HEENT: Reveals normocephalic, nontraumatic cranium. Pupils are equally round and reactive. Extraocular eye movements intact. Nose and throat slightly dry. NECK: Supple, without masses, nodes or bruits. CHEST: Clear to auscultation. No rales, rhonchi or wheezes are heard. CARDIOVASCULAR: Reveals a irregular irregular rate and rhythm without murmurs, gallops or rubs. ABDOMEN: Scaphoid, soft, nontender, without organomegaly, normal bowel sounds are noted. No rebound or guarding is noted. : Deferred. EXTREMITIES: Reveal no clubbing, cyanosis or edema. IMPRESSION: 1. Infection of the right knee growing Pseudomonas, Proteus, Enterococcus. Meropenem 1 gram IV q.8 h until the end of the month per Dr. Palumbo. 2. Status post incision and drainage, removal of patella secondary to infection. 3. Wound VAC, vacuum assisted closure in place and working. 4. Severe peripheral arterial disease status post right lower extremity vascular endarterectomy and stents x2 by Dr. Jaimes. 5. Chronic atrial fibrillation. 6. Hypertension. 7. Chronic anticoagulation. 8. Peripheral vascular disease. 9. Benign prostate hypertrophy. 10. Malnutrition. 11. Gout. 12. Generalized weakness. 13. Anxiety disorder. PLAN: 1. Continue meropenem q.8 hours until the end of the month. 2. Continue physical therapy and occupational therapy. 3. Continue deep venous thrombosis and stress ulcer prophylaxis. 4. Continue decubitus and wound care with wound VAC. 5. Continue present medications. 6. Continue anticoagulation. MTDD
[2016-11-11] MEDS: Cyclobenzaprine 10 MG TAB PO PRN (21:08)
[2016-11-12] MEDS: Meropenem 1 GM in Sodium Chloride 0.9% 100 ML IVPB SCH ×3 (05:34→21:36)
[2016-11-12] MEDS: Saccharomyces boulardii 250 MG CAP PO SCH (08:04)
[2016-11-12] MEDS: Multivitamin W/ Minerals 1 TAB PO SCH (08:04)
[2016-11-12] MEDS: Clopidogrel Bisulfate 75 MG TAB PO SCH (08:04)
[2016-11-12] MEDS: Polyethylene Glycol 3350 17 GM Packet PO SCH (08:05)
[2016-11-12] MEDS: Folic Acid 1 MG TAB PO SCH (08:05)
[2016-11-12] MEDS: FLUoxetine HCl 10 MG CAP PO SCH (08:05)
[2016-11-12] MEDS: Rivaroxaban 10 MG TAB PO SCH (08:05)
[2016-11-12] MEDS: Digoxin 0.125 MG TAB PO SCH (08:06)
--- NOTE | 2016-11-12 10:04 | PRG ---
DATE OF SERVICE: 11/12/2016 Mr. Reese is a 65-year-old white male who fractured his patella. He had it repaired, but unfortunately got infected. He had to go back to the hospital for an incision and drainage, which was done. He was then started on meropenem 1 gram q.8 hours and was to follow up with Dr. Palumbo. The patient was growing Pseudomonas, Proteus and Enterococcus and he presently has a wound VAC on top. SUBJECTIVE: The patient has no complaints. He states he is doing well. He is not constipated. He is eating well. OBJECTIVE: GENERAL: This is a well-developed, well-nourished, very pleasant, thin white male in no apparent distress at this time. HEENT: Reveals normocephalic and nontraumatic cranium. Pupils are equally round and reactive. Extraocular movements are intact. Nose and throat are slightly dry. NECK: Supple, without masses, nodes or bruits. LUNGS: Chest is clear to auscultation. No rales, rhonchi or wheezes are heard. No cough is noted. HEART: Reveals a irregular irregular rate and rhythm without murmurs, gallops or rubs. ABDOMEN: Scaphoid, soft and nontender, without organomegaly. Normal bowel sounds. No rebound or guarding is noted. GENITOURINARY: Deferred. EXTREMITIES: Reveal no clubbing, cyanosis or edema. IMPRESSION: 1. Infected right knee growing Pseudomonas, Proteus and Enterococcus. 2. Meropenem 1 gram IV q.8 hours until the end of the month per Dr. Palumbo. 3. Status post incision and drainage with removal of patella secondary infection. 4. Wound VAC for healing. 5. Severe peripheral artery disease, status post right lower extremity vascular endarterectomy and stents x2 by Dr. Jaimes. 6. Chronic atrial fibrillation. 7. Hypertension. 8. Chronic anticoagulation. 9. Peripheral vascular disease. 10. Benign prostatic hypertrophy. 11. Malnutrition. 12. Gout. 13. Generalized weakness. 14. Anxiety disorder. PLAN: 1. Continue meropenem 1 gram q.8 hours until the end of the month. 2. Continue physical therapy and occupational therapy. 3. Continue deep venous thrombosis and stress ulcer prophylaxis. 4. Continue to give his wound care with wound VAC. 5. Continue present medication. 6. Continue anticoagulation. [facility]
[2016-11-12] MEDS: Cyclobenzaprine 10 MG TAB PO PRN (21:37)
[2016-11-13] MEDS: Meropenem 1 GM in Sodium Chloride 0.9% 100 ML IVPB SCH ×3 (05:40→21:32)
[2016-11-13] MEDS: Acetaminophen/Codeine 30-300mg Tablet PO PRN ×2 (07:40→23:24)
[2016-11-13] MEDS: FLUoxetine HCl 10 MG CAP PO SCH (08:43)
[2016-11-13] MEDS: Clopidogrel Bisulfate 75 MG TAB PO SCH (08:43)
[2016-11-13] MEDS: Saccharomyces boulardii 250 MG CAP PO SCH (08:43)
[2016-11-13] MEDS: Multivitamin W/ Minerals 1 TAB PO SCH (08:44)
[2016-11-13] MEDS: Digoxin 0.125 MG TAB PO SCH (08:45)
[2016-11-13] MEDS: Folic Acid 1 MG TAB PO SCH (08:45)
[2016-11-13] MEDS: Rivaroxaban 10 MG TAB PO SCH (08:45)
[2016-11-13] MEDS: Polyethylene Glycol 3350 17 GM Packet PO SCH (08:46)
--- NOTE | 2016-11-13 20:38 | PRG ---
DATE OF SERVICE: 11/13/2016 HISTORY OF PRESENT ILLNESS: Mr. Reese is a 65-year-old white male that fractured is patella. He h ad repair, but then he got infected. He went to the hospital for incision and drainage of that rece ntly. He has been started on meropenem 1 gram q.8 hours with follow up with Dr. Palumbo. The patient is also growing Pseudomonas, Proteus, and Enterococcus. He has been followed by Dr. Infante for hi s surgery. SUBJECTIVE: The patient states he has no complaints today. He wonders what would happen on the 28t h when he finish his antibiotics would he go home. When he goes to see Dr. Infante etc., We will t ry to address that today when we will call the office. OBJECTIVE: VITAL SIGNS: Blood pressure this morning was 131/99, pulse 76-110, respirations 20, O2 saturation 9 7% on room air, temperature 96.2. PHYSICAL EXAMINATION: GENERAL: This is a well-developed, well-nourished, very pleasant white male in no apparent distress at this time. HEENT: Reveals normocephalic, nontraumatic cranium. Pupils are equally round and reactive. Extrao cular movements intact. Nose and throat are slightly dry. NECK: Supple without masses, nodes, or bruits. CHEST: Clear to auscultation. No rales, rhonchi, or wheezes are heard. HEART: Irregularly irregular rate and rhythm without murmurs, gallops, or rubs. ABDOMEN: Scaphoid, soft, nontender, without organomegaly. Normal bowel sounds are noted. No rebou nd or guarding is noted. GENITOURINARY: Deferred. EXTREMITIES: Reveal no clubbing, cyanosis, or edema. IMPRESSION: 1. Infected right knee growing Pseudomonas, Proteus and Enterococcus. 2. Meropenem 1 gram q.8 hours until the end of the month by Dr. Palumbo. 3. Status post incision and drainage with removal of patella secondary to infection. 4. Wound VAC healing. 5. Severe peripheral artery disease and status post right lower extremity vascular endarterectomy a nd stents x2 by Dr. Jaimes. 6. Chronic atrial fibrillation. 7. Hypertension. 8. Chronic anticoagulation. 9. Peripheral vascular disease. 10. Benign prostatic hypertrophy. 11. Malnutrition. 12. Gout. 13. Generalized weakness. 14. Anxiety depressive disorder. PLAN: 1. Continue physical therapy and occupational therapy. 2. Continue meropenem 1 gram q.8 hours until the end of the month. 3. Continue deep venous thrombosis and stress ulcer prophylaxis. 4. Continue wound care with wound VAC. Continue present medication. 5. Continued anticoagulation. 5. Continue decubitus precautions.
[2016-11-13] MEDS: Cyclobenzaprine 10 MG TAB PO PRN (23:24)
[2016-11-14] MEDS: Meropenem 1 GM in Sodium Chloride 0.9% 100 ML IVPB SCH ×3 (05:31→21:33)
[2016-11-14] MEDS: Acetaminophen/Codeine 30-300mg Tablet PO PRN ×2 (08:34→21:33)
[2016-11-14] MEDS: Folic Acid 1 MG TAB PO SCH (08:36)
[2016-11-14] MEDS: Clopidogrel Bisulfate 75 MG TAB PO SCH (08:36)
[2016-11-14] MEDS: Multivitamin W/ Minerals 1 TAB PO SCH (08:36)
[2016-11-14] MEDS: Saccharomyces boulardii 250 MG CAP PO SCH (08:36)
[2016-11-14] MEDS: FLUoxetine HCl 10 MG CAP PO SCH (08:37)
[2016-11-14] MEDS: Rivaroxaban 10 MG TAB PO SCH (08:37)
[2016-11-14] MEDS: Digoxin 0.125 MG TAB PO SCH (08:37)
[2016-11-14] MEDS: Polyethylene Glycol 3350 17 GM Packet PO SCH (08:38)
--- NOTE | 2016-11-14 18:31 | PRG ---
DATE OF PROGRESS NOTE: 11/14/2016 HISTORY OF PRESENT ILLNESS: Mr. Reese is a very pleasant 65-year-old white male that unfortunately fell and fractured his patella. He had repair at the [facility] and therefore, he got infected. He will return back to the hospital and incision and drainage done that recently and was transferred to [facility] for 1 month, meropenem 1 gram q.8 h and was follow up with Dr. Palumbo. The pa tient is noted to be growing Pseudomonas, Proteus and Enterococcus and that incision. The patient w ill be followed by Dr. Infante for his surgery. Patient has appointment with Dr. Infante tomorrow morning about 10:30 for followup. SUBJECTIVE: The patient has no complaints today, states he is still eating well, although he is not gaining any weight. He will be happy when he finishes the antibiotic he wants. He is anxious to g o home. PHYSICAL EXAMINATION: VITAL SIGNS: Reveals blood pressure this morning 124/70, pulse 78, respirations 18, O2 saturation 9 8% on room air, temperature 95.8. GENERAL: Well-nourished, very thin, almost cachectic white male in no apparent distress at this leonides e. HEENT: Reveals normocephalic, nontraumatic cranium. Pupils equal, round, and reactive. Extraocula r movements intact. Nose and throat slightly dry. NECK: Supple, without masses, nodes or bruits. CHEST: Clear to auscultation. No rales, rhonchi, wheezes or cough is heard. HEART: Reveals an irregularly irregular rate and rhythm without murmurs, gallops or rubs. ABDOMEN: Scaphoid, soft, nontender, without organomegaly, normal bowel sounds are noted. No reboun d or guarding is noted. : Deferred. EXTREMITIES: Reveal the right knee still a knee immobilizer with a wound VAC still attached, which has minimal drainage. IMPRESSION: 1. Infected right knee growing Pseudomonas, Proteus and Enterococcus. 2. Meropenem 1 gram q.8 h. until the end of the month by Dr. Palumbo. 3. Status post incision and drainage with removal Martino's secondary to infection. 4. Continue wound VAC. 5. Severe peripheral artery disease status post right lower extremity vascular endarterectomy and s tents x2 by Dr. Jaimes. 6. Chronic atrial fibrillation. 7. Hypertension. 8. Chronic anticoagulation. 9. Peripheral vascular disease. 10. Benign prostatic hypertrophy. 11. Malnutrition. 12. Gout. 13. Generalized weakness. 14. Anxiety depressive disorder. PLAN: 1. Continue physical therapy, occupational therapy. Continue meropenem 1 gram q.8 h until end of t he month. 2. Continue deep venous thrombosis and stress ulcer prophylaxis. 3. Continue wound care with wound VAC. 4. Continue present medications. 5. Continue anticoagulation. 6. Continue decubitus precautions.
[2016-11-14] MEDS: Cyclobenzaprine 10 MG TAB PO PRN (21:32)
[2016-11-15] MEDS: Meropenem 1 GM in Sodium Chloride 0.9% 100 ML IVPB SCH ×3 (05:44→21:19)
[2016-11-15] MEDS: Folic Acid 1 MG TAB PO SCH (08:04)
[2016-11-15] MEDS: Polyethylene Glycol 3350 17 GM Packet PO SCH (08:04)
[2016-11-15] MEDS: Clopidogrel Bisulfate 75 MG TAB PO SCH (08:04)
[2016-11-15] MEDS: Rivaroxaban 10 MG TAB PO SCH (08:05)
[2016-11-15] MEDS: Multivitamin W/ Minerals 1 TAB PO SCH (08:05)
[2016-11-15] MEDS: Saccharomyces boulardii 250 MG CAP PO SCH (08:05)
[2016-11-15] MEDS: FLUoxetine HCl 10 MG CAP PO SCH (08:05)
[2016-11-15] MEDS: Digoxin 0.125 MG TAB PO SCH (08:05)
[2016-11-15] MEDS: Cyclobenzaprine 10 MG TAB PO PRN (19:59)
[2016-11-15] MEDS: Acetaminophen/Codeine 30-300mg Tablet PO PRN (19:59)
[2016-11-16] MEDS: Meropenem 1 GM in Sodium Chloride 0.9% 100 ML IVPB SCH ×3 (05:42→21:41)
[2016-11-16] MEDS: Multivitamin W/ Minerals 1 TAB PO SCH (09:17)
[2016-11-16] MEDS: Folic Acid 1 MG TAB PO SCH (09:17)
[2016-11-16] MEDS: Digoxin 0.125 MG TAB PO SCH (09:18)
[2016-11-16] MEDS: Clopidogrel Bisulfate 75 MG TAB PO SCH (09:18)
[2016-11-16] MEDS: Saccharomyces boulardii 250 MG CAP PO SCH (09:18)
[2016-11-16] MEDS: FLUoxetine HCl 10 MG CAP PO SCH (09:18)
[2016-11-16] MEDS: Rivaroxaban 10 MG TAB PO SCH (09:18)
[2016-11-16] MEDS: Polyethylene Glycol 3350 17 GM Packet PO SCH (09:19)
--- NOTE | 2016-11-16 12:18 | PRG ---
DATE OF SERVICE: 11/16/2016 SUBJECTIVE: Mr. Reese is doing well. Denies any complaints, tolerating his therapy. He was seen by Dr. Infante last week and apparently his weightbearing status has been improved. He is apparentl y weightbearing to toe touch per patient, instructions have been given to therapy. He is scheduled to see Dr. Palumbo next week. OBJECTIVE: VITAL SIGNS: He is afebrile, heart rate is 88, respirations are 20, blood pressure is 139/77, oxyge n saturation is 97%. CARDIOVASCULAR: S1, S2 plus. RESPIRATORY: Normal vesicular breath sounds. ABDOMEN: Soft, nontender, bowel sounds heard in all quadrants. EXTREMITIES: Without cyanosis or clubbing. Peripheral pulses are palpable. IMPRESSION: 1. Right knee septic arthritis with wound VAC placement. 2. Benign prostatic hypertrophy. 3. Malnutrition. 4. Hypertension. 5. Chronic atrial fibrillation. 6. Peripheral vascular disease. PLAN: 1. Continue IV antibiotics. 2. Nutritional support. 3. DVT and stress ulcer prophylaxis. 4. Wound VAC. 5. Physical therapy. 6. Orthopedic restrictions. 7. Routine laboratory values. He is due for his Weekly CBC, CRP, sed rate.
[2016-11-16] MEDS: Acetaminophen/Codeine 30-300mg Tablet PO PRN (20:38)
[2016-11-16] MEDS: Cyclobenzaprine 10 MG TAB PO PRN (20:39)
[2016-11-17] MEDS: Meropenem 1 GM in Sodium Chloride 0.9% 100 ML IVPB SCH ×3 (05:39→21:23)
[2016-11-17 05:48] LABS: #Basophils 0.1 thou/uL (0.0-0.2); #Eosinphils 0.5 thou/uL (0.0-0.7); #Lymphocytes 1.3 thou/uL (1.20-3.40); #Monocytes 1.2 thou/uL (0.11-0.59); %Basophils 1.5 % (0.0-1.0); %Eosinophils 5.2 % (0.0-10.0); %Lymphocytes 14.4 % (21.0-51.0); %Monocytes 12.9 % (0.0-10.0); Hematocrit 30.3 % (42.0-52.0); Mean Platelet Volume 5.8 fL (7.4-10.4); Red Blood Cell (RBC) Count 3.33 mill/uL (4.70-6.10); White Blood Cell (WBC) Count 9.1 thou/uL (4.8-10.8)
[2016-11-17 06:00] LABS: ALT (SGPT) 18 U/L (0-55); AST (SGOT) 19 U/L (5-34); Alkaline Phosphatase 91 U/L (40-150); Anion Gap 13 mmol/L (10-20); BUN (Urea Nitrogen) 29 mg/dL (8.4-25.7); Bilirubin, Total 0.8 mg/dL (0.2-1.2); Calc. Creatinine Clearance 82 mL/min (70-130); Calcium 9.5 mg/dL (7.8-10.44); Carbon Dioxide 23 mmol/L (23-31); Chloride 104 mmol/L (98-107); Estimated GFR-MDRD Greater than 90; Globulin 3.5 g/dL (2.4-3.5); Protein, Total 6.9 g/dL (5.8-8.1)
[2016-11-17] MEDS: FLUoxetine HCl 10 MG CAP PO SCH (08:42)
[2016-11-17] MEDS: Folic Acid 1 MG TAB PO SCH (08:43)
[2016-11-17] MEDS: Rivaroxaban 10 MG TAB PO SCH (08:43)
[2016-11-17] MEDS: Saccharomyces boulardii 250 MG CAP PO SCH (08:43)
[2016-11-17] MEDS: Clopidogrel Bisulfate 75 MG TAB PO SCH (08:43)
[2016-11-17] MEDS: Digoxin 0.125 MG TAB PO SCH (08:43)
[2016-11-17] MEDS: Multivitamin W/ Minerals 1 TAB PO SCH (08:43)
[2016-11-17] MEDS: Polyethylene Glycol 3350 17 GM Packet PO SCH (14:26)
--- NOTE | 2016-11-17 16:44 | PRG ---
DATE OF SERVICE: 11/17/2016 SUBJECTIVE: Mr. Reese is doing well. Denies any complaints, resting comfortably, tolerating his w ound VAC and his IV antibiotics. OBJECTIVE: VITAL SIGNS: He is afebrile, heart rate is 74, respirations are 18, oxygen saturation 96%, blood pr essure 119/78. CARDIOVASCULAR: S1, S2 plus. RESPIRATORY: Normal vesicular breath sounds. ABDOMEN: Soft, nontender, bowel sounds heard in all quadrants. EXTREMITIES: Without cyanosis or clubbing. Right knee with wound VAC placement. LABORATORY VALUES: White count is 9.1, H\T\H is 10.1 and 30.3. Sed rate is 99, it was 101 last wee k. Chemistry shows a sodium 136, potassium 4.2, BUN and creatinine is 29 and 0.82. CRP is down to 2.06. It was 2.53 last week. IMPRESSION: 1. Right knee septic arthritis on IV antibiotics and wound VAC. 2. Benign prostatic hypertrophy. 3. Improving malnutrition. 4. Hypertension. 5. Peripheral vascular disease. PLAN: 1. Continue current medications. 2. Nutritional support. 3. DVT and stress ulcer prophylaxis. 4. Decubitus precautions. 5. Wound VAC. 6. Dr. Juaquin Weldon back tonight.
[2016-11-17] MEDS: Acetaminophen/Codeine 30-300mg Tablet PO PRN (21:22)
[2016-11-17] MEDS: Cyclobenzaprine 10 MG TAB PO PRN (21:23)
[2016-11-18] MEDS: Meropenem 1 GM in Sodium Chloride 0.9% 100 ML IVPB SCH ×3 (06:06→21:21)
[2016-11-18] MEDS: Acetaminophen/Codeine 30-300mg Tablet PO PRN ×2 (07:28→14:21)
[2016-11-18] MEDS: Digoxin 0.125 MG TAB PO SCH (09:03)
[2016-11-18] MEDS: Polyethylene Glycol 3350 17 GM Packet PO SCH (09:03)
[2016-11-18] MEDS: Folic Acid 1 MG TAB PO SCH (09:03)
[2016-11-18] MEDS: Saccharomyces boulardii 250 MG CAP PO SCH (09:04)
[2016-11-18] MEDS: Rivaroxaban 10 MG TAB PO SCH (09:04)
[2016-11-18] MEDS: Multivitamin W/ Minerals 1 TAB PO SCH (09:04)
[2016-11-18] MEDS: FLUoxetine HCl 10 MG CAP PO SCH (09:04)
[2016-11-18] MEDS: Clopidogrel Bisulfate 75 MG TAB PO SCH (09:04)
[2016-11-18] MEDS: Cyclobenzaprine 10 MG TAB PO PRN (09:09)
--- NOTE | 2016-11-18 10:38 | PRG ---
DATE OF SERVICE: 11/15/2016 HISTORY OF PRESENT ILLNESS: Mr. Reese is a 65-year-old white male that unfortunately fell and frac tured his patella. He had it repaired at [facility] and it unfortunately became infected. He returned to the hospital and had incision and drainage done and then was transferred to [facility] for 1 month of meropenem q.8 hours and follow up with Dr. Palumbo. He was growing Pseudomonas, Proteus and Enterococcus. He is supposed to followed up by Dr. Infante which he was and he was not ed to be weightbearing as tolerated. SUBJECTIVE: The patient has no complaints today. I did get a call from physical therapy that said that Dr. Infante recommend weightbearing as tolerated. VITAL SIGNS: Blood pressure is 127/73, respirations 18, O2 saturation 98% on room air, pulse 97, te mperature 96.3. PHYSICAL EXAMINATION: GENERAL: This is a very well-developed, cachectic looking white male in no apparent distress at thi s time. HEENT: Reveals normocephalic, nontraumatic cranium. Pupils are equally round and reactive. Extrao cular movements intact. Nose and throat slightly dry. NECK: Supple, without mass, nodes or bruits. CHEST: Clear to auscultation. No rales, rhonchi or wheezes are heard. CARDIOVASCULAR: Reveals an irregularly irregular rate and rhythm without murmurs, gallops or rubs. ABDOMEN: Scaphoid, soft, nontender, without organomegaly, normal bowel sounds are noted No rebound or guarding is noted. : Deferred. EXTREMITIES: Reveal right knee in a knee immobilizer and still with wound VAC. NEUROLOGIC: The patient is on his way to see Dr. Infante when I saw him this morning and I did get a return phone call about him weightbearing as tolerated. IMPRESSION: 1. Infected right knee growing Pseudomonas, Proteus, Enterococcus. 2. Meropenem until 11/19/2016 which is tomorrow. 3. Status post incision and drainage with removal of the patella secondary to infection. 4. Continue wound VAC. 5. Continued severe peripheral artery disease status post right lower extremity vascular endarterec bia and stents x2 by Dr. Jaimes. 6. Chronic atrial fibrillation. 7. Hypertension. 8. Chronic anticoagulation. 9. Peripheral vascular disease. 10. Benign prostatic hypertrophy. 11. Malnutrition. 12. Gout. 13. Generalized weakness. 14. Anxiety depressive disorder. PLAN: 1. Continue physical therapy and occupational therapy. 2. Continue meropenem 1 gram q.8 h. until tomorrow. 3. Continue deep venous thrombosis and stress ulcer prophylaxis. 4. Continue wound care and wound VAC. 5. Continue present medication. 6. Continue anticoagulation. 7. Continue decubitus precautions.
--- NOTE | 2016-11-18 11:34 | PRG ---
DATE OF SERVICE: 11/18/2016 HISTORY OF PRESENT ILLNESS: Mr. Reese is a 65-year-old white male who unfortunately fell and fract ured his patella. He had a repair done at [facility] and it got infected. He ended up having to go to [facility] for I\T\D. He was placed on meropenem 1 gram q.8 h. and is supposed to follow up with Dr. Palumbo. The patient was noted to be growing Pseudomonas, Proteus and Enterococcus at the incision. The patient was seen by Dr. Infante on Friday and is weightbearing as tolerated. SUBJECTIVE: The patient has no complaints today. He wonders what Dr. Palumbo wants to do. There is a call in for Dr. Palumbo. He is supposed to finish his antibiotics tomorrow. VITAL SIGNS: This morning reveal blood pressure 120/91, pulse 80-98, respirations 18, O2 sat 96%, t emperature 97.4. LABORATORY: Laboratories yesterday revealed a white count 9100 with hemoglobin 10.1, hematocrit 30. 3. Platelet count was 358,000. His sed rate was 99. Chemistry revealed sodium 136, potassium 4.2, chloride 104, carbon dioxide 23 with a BUN of 29, crea tinine 0.86. Glucose was 91. GFR is greater than 90. His C-reactive protein has gone down from 2. 53 down to 2.06. PHYSICAL EXAMINATION: GENERAL: This is a well-developed, well-nourished, thin white male in no apparent distress at this time. HEENT: Reveals normocephalic, nontraumatic cranium. Pupils are equally round and reactive. Extrao cular movements intact. Nose and throat slightly dry. NECK: Supple, without masses, nodes or bruits. CHEST: Clear to auscultation. No rales, rhonchi or wheezes are heard. CARDIOVASCULAR: Reveals a regular rate and rhythm without murmurs, gallops or rubs. HEART: Reveals an irregularly irregular rate and rhythm without murmurs, gallops or rubs. ABDOMEN: Scaphoid, soft, nontender, without organomegaly, normal bowel sounds are noted. No reboun d or guarding is noted. : Deferred. EXTREMITIES: Reveal right knee is still immobilized with a wound VAC, doing much better. IMPRESSION: 1. Infected right knee growing Pseudomonas, Proteus and Enterococcus. 2. Meropenem 1 gram q.8 h. until the end of the month, followed by Dr. Palumbo. 3. Status post incision and drainage with removal of the patella secondary to infection. Continue wound VAC. 4. Severe peripheral arterial disease status post right lower extremity vascular endarterectomy and stents x2 by Dr. Jaimes. 5. Chronic atrial fibrillation. 6. Hypertension. 7. Chronic anticoagulation. 8. Peripheral vascular disease. 9. Benign prostatic hypertrophy. 10. Malnutrition. 11. Gout. 12. Generalized weakness. 13. Anxiety and depressive disorder. PLAN: 1. Continue physical therapy and occupational therapy. 2. Continue meropenem 1 gram q.8 h. until the end of the month. 3. Continue deep venous thrombosis and stress ulcer prophylaxis. 4. Continue wound care with wound VAC. 5. Continue present medications. 6. Continue anticoagulation. 7. Continue decubitus precautions.
[2016-11-19] MEDS: Meropenem 1 GM in Sodium Chloride 0.9% 100 ML IVPB SCH ×3 (06:12→21:14)
[2016-11-19] MEDS: Acetaminophen/Codeine 30-300mg Tablet PO PRN (07:20)
[2016-11-19] MEDS: FLUoxetine HCl 10 MG CAP PO SCH (08:43)
[2016-11-19] MEDS: Polyethylene Glycol 3350 17 GM Packet PO SCH (08:43)
[2016-11-19] MEDS: Rivaroxaban 10 MG TAB PO SCH (08:43)
[2016-11-19] MEDS: Saccharomyces boulardii 250 MG CAP PO SCH (08:43)
[2016-11-19] MEDS: Multivitamin W/ Minerals 1 TAB PO SCH (08:43)
[2016-11-19] MEDS: Folic Acid 1 MG TAB PO SCH (08:44)
[2016-11-19] MEDS: Clopidogrel Bisulfate 75 MG TAB PO SCH (08:44)
[2016-11-19] MEDS: Digoxin 0.125 MG TAB PO SCH (08:44)
--- NOTE | 2016-11-19 14:44 | PRG ---
DATE OF SERVICE: 11/19/2016 HISTORY OF PRESENT ILLNESS: Mr. Reese is a very pleasant 65-year-old white male, who unfortunately fell and fractured his patella. He had repair done at the [facility] and got infected. He ended up havin g to go to the [facility] for incision and drainage and he also has patella removal. He has been followed by Dr. Palumbo and Dr. Palumbo yesterday recommend one more week of meropenem. We will repeat his labs and repeat the culture, and sent those to Dr. Palumbo, and he will determine whet her he is getting better or not. Mr. Reese states he is walking a little bit, which is much improved. He is wearing his left leg im mobilizer and states he has to swing. Just showing his leg out to be able to walk, but he is beginn ing to manage that. He has no complaints at this time. PHYSICAL EXAMINATION: VITAL SIGNS: Blood pressure 153/93, pulse 72-80, respirations 20, and O2 saturation 97% on room air , and temperature max 96.6. GENERAL: This is a well-developed, well-nourished, cachectic, thin white male in no apparent distre ss at this time. HEENT: Reveals normocephalic, nontraumatic cranium. Pupils are equally round and reactive. Extrao cular movements intact. Nose and throat slightly dry. NECK: Supple, without masses, nodes or bruits. LUNGS: Chest is clear to auscultation. No rales, rhonchi or wheezes are heard. No cough is noted. HEART: Irregularly irregular rate and rhythm without murmurs, gallops or rubs. ABDOMEN: Scaphoid, soft, nontender, without organomegaly. Normal bowel sounds are noted. No rebou nd or guarding is noted. : Deferred. EXTREMITIES: Reveal right knee still on knee immobilizer the wound VAC, doing much better. IMPRESSION: 1. Infected right knee growing Pseudomonas, Proteus, and Enterococcus. 2. Dr. Palumbo requested 1 more week of meropenem 1 gram q.8 hours till the end of the month. 3. Continue status post incision and drainage with removal of patella secondary infection. 4. Continue wound VAC. 5. Continues to severe peripheral arterial disease status post right lower extremity vascular endar terectomy and stents x2 by Dr. Jaimes. 6. Chronic atrial fibrillation. 7. Hypertension. 8. Chronic anticoagulation. 9. Peripheral vascular disease. 10. Benign prostatic hypertrophy. 11. Malnutrition. 12. Gout. 13. Generalized weakness. 14. Anxiety and depressive disorder. PLAN: 1. Continue physical therapy and occupational therapy. 2. Continue meropenem 1 gram q.8 hours until for 1 more week. 3. Continue deep venous thrombosis and stress ulcer prophylaxis. 4. Continue wound care. 5. Continue wound VAC. 6. Continue present medications. 7. Continue anticoagulation. 8. Continue decubitus precautions.
[2016-11-20] MEDS: Meropenem 1 GM in Sodium Chloride 0.9% 100 ML IVPB SCH ×3 (06:18→21:28)
[2016-11-20] MEDS: Clopidogrel Bisulfate 75 MG TAB PO SCH (08:23)
[2016-11-20] MEDS: Multivitamin W/ Minerals 1 TAB PO SCH (08:23)
[2016-11-20] MEDS: FLUoxetine HCl 10 MG CAP PO SCH (08:23)
[2016-11-20] MEDS: Acetaminophen/Codeine 30-300mg Tablet PO PRN ×2 (08:23→18:12)
[2016-11-20] MEDS: Acetaminophen 325 MG TAB PO PRN ×2 (08:24→18:12)
[2016-11-20] MEDS: Saccharomyces boulardii 250 MG CAP PO SCH (08:24)
[2016-11-20] MEDS: Rivaroxaban 10 MG TAB PO SCH (08:25)
[2016-11-20] MEDS: Digoxin 0.125 MG TAB PO SCH (08:25)
[2016-11-20] MEDS: Folic Acid 1 MG TAB PO SCH (08:25)
[2016-11-20] MEDS: Polyethylene Glycol 3350 17 GM Packet PO SCH (08:26)
--- NOTE | 2016-11-20 13:30 | PRG ---
DATE OF SERVICE: 11/20/2016 HISTORY OF PRESENT ILLNESS: Mr. Reese is a very pleasant 65-year-old white male that fell at home and fractured his patella. The repair was done at the [facility], and he got infected unfortunately. He h ad to go back to [facility] for incision and drainage and patellar movement. He has been followed by Dr. Maryann scott and Dr. Palumbo recommended next week or two of meropenem. We will repeat labs and repeat cultur e, those sent to Dr. Palumbo and take pictures and those will be send to Dr. Palumbo, will make another determination this next Friday. Mr. Reese states he walked with his knee immobilizer on about 7 0 feet today and states he is feeling much better and much stronger. OBJECTIVE: VITAL SIGNS: Blood pressure is 119/69, pulse 73-79, respirations 20, and O2 saturations 96% on room air, and temperature 96.6. PHYSICAL EXAMINATION: GENERAL: This is a well-developed, well-nourished, very pleasant, thin, almost emaciated white male , in no apparent distress at this time. HEENT: Reveals normocephalic, nontraumatic cranium. Pupils are equally round. Nose and throat sli ghtly dry. NECK: Supple, without masses, nodes or bruits. LUNGS: Clear to auscultation. No rales, rhonchi, wheezes are heard. No cough is noted. CARDIOVASCULAR: Irregularly irregular rate and rhythm without murmurs, gallops or rubs. ABDOMEN: Scaphoid, soft, nontender, without organomegaly, normal bowel sounds are noted. : Deferred. EXTREMITIES: Reveals right knee still with a wound VAC on, slowly improving. IMPRESSION: 1. Infected right knee growing Pseudomonas, Proteus, and Enterococcus. 2. Dr. Palumbo requested an extra week and possibly two weeks of meropenem 1 gram q.8 hours to the en d of the month. 3. Continue status post incision and drainage with wound VAC. 4. Severe peripheral arterial disease status post right lower extremity vascular endarterectomy, an d stents x2 by Dr. Jaimes. 5. Chronic atrial fibrillation. 6. Hypertension. 7. Chronic anticoagulation. 8. Peripheral vascular disease. 9. Benign prostatic hypertrophy. 10. Malnutrition. 11. Gout. 12. Generalized weakness. 13. Anxiety, depressive disorder. PLAN: 1. Continue meropenem 1 gram q.8 hours for another week per Dr. Palumbo and possibly second week. 2. Labs on Friday already been ordered along with pictures from physical therapy be sent to Dr. Piter au on Friday for determination if he needs further IV antibiotics. 3. Continue physical therapy and occupational therapy. 4. Continue wound care. 5. Continue wound VAC. 6. Continue anticoagulation. 7. Decubitus precautions. 8. DVT and stress ulcer prophylaxis.
[2016-11-20] MEDS: Cyclobenzaprine 10 MG TAB PO PRN (21:28)
[2016-11-21] MEDS: Meropenem 1 GM in Sodium Chloride 0.9% 100 ML IVPB SCH ×3 (05:26→21:49)
--- NOTE | 2016-11-21 06:22 | PRG ---
DATE OF SERVICE: 11/21/2016 HISTORY OF PRESENT ILLNESS: Mr. Reese is a 65-year-old white male that fell at home and fractured his patella. He was taken to [facility] and that was repaired. Unfortunately, he got infected and he had to go back to [facility] for and incision and drainage and removal of the patella. He has been fol lowed by Dr. Palumbo and Dr. Palumbo recommended another 1-2 weeks of meropenem 1 gram q.8 h. We will re peat labs and cultures and pictures and send those to Dr. Palumbo. Mr. Reese is walking with his kne e immobilizer on and states he is getting much stronger. OBJECTIVE: VITAL SIGNS: Blood pressure 130/62, pulse 73-75, respirations 18, O2 sat 95%, T-max 97.2. PHYSICAL EXAMINATION: GENERAL: This is a well-developed, well-nourished, thin white male in no apparent distress at this time. HEENT: Reveals normocephalic, nontraumatic cranium. Pupils are equally round and reactive. Extrao cular movements intact. Nose and throat slightly dry. NECK: Supple, without masses, nodes or bruits. CHEST: Clear to auscultation. No rales, rhonchi or wheezes are heard. CARDIOVASCULAR: Reveals an irregularly irregular rate and rhythm without murmurs, gallops or rubs. ABDOMEN: Scaphoid, soft, nontender, without organomegaly, normal bowel sounds are noted. No reboun d or guarding is noted. : Deferred. EXTREMITIES: Reveal right knee still with wound VAC on, slowly improving. IMPRESSION: 1. Infected right knee growing Pseudomonas, Proteus and Enterococcus. 2. Dr. Palumbo requested at least 1 possibly 2 extra weeks of meropenem 1 gram q.8 hours. 3. Continue wound VAC. 4. Severe peripheral arterial disease status post right [id number] vascular endarterectomy and stents x2 by Dr. Jaimes. 5. Chronic atrial fibrillation. 6. Hypertension. 7. Chronic anticoagulation. 8. Peripheral vascular disease 9. Benign prostate hypertrophy. 10. Malnutrition. 11. Gout. 12. Generalized weakness. 13. Anxiety depressive disorder. PLAN: 1. Continue meropenem 1 gram q.8 h. for a week per Dr. Palumbo and possibly second week. 2. Labs on Friday already have been ordered along with pictures from physical therapy to be sent to Dr. Palumbo on Friday for determination if he needs another week of antibiotics. 3. Continue physical therapy and occupational therapy. 4. Continue wound VAC. 5. Continue wound care. 6. Continue anticoagulation. 7. Decubitus precautions. 8. DVT and stress ulcer prophylaxis.
[2016-11-21] MEDS: Acetaminophen/Codeine 30-300mg Tablet PO PRN ×3 (06:30→21:55)
[2016-11-21] MEDS: Saccharomyces boulardii 250 MG CAP PO SCH (09:19)
[2016-11-21] MEDS: FLUoxetine HCl 10 MG CAP PO SCH (09:19)
[2016-11-21] MEDS: Rivaroxaban 10 MG TAB PO SCH (09:19)
[2016-11-21] MEDS: Clopidogrel Bisulfate 75 MG TAB PO SCH (09:19)
[2016-11-21] MEDS: Digoxin 0.125 MG TAB PO SCH (09:20)
[2016-11-21] MEDS: Multivitamin W/ Minerals 1 TAB PO SCH (09:20)
[2016-11-21] MEDS: Folic Acid 1 MG TAB PO SCH (09:20)
[2016-11-21] MEDS: Polyethylene Glycol 3350 17 GM Packet PO SCH (14:48)
[2016-11-21] MEDS: Cyclobenzaprine 10 MG TAB PO PRN (21:49)
[2016-11-22] MEDS: Meropenem 1 GM in Sodium Chloride 0.9% 100 ML IVPB SCH ×3 (05:25→20:59)
[2016-11-22] MEDS: Clopidogrel Bisulfate 75 MG TAB PO SCH (09:08)
[2016-11-22] MEDS: Saccharomyces boulardii 250 MG CAP PO SCH (09:08)
[2016-11-22] MEDS: Rivaroxaban 10 MG TAB PO SCH (09:09)
[2016-11-22] MEDS: Digoxin 0.125 MG TAB PO SCH (09:09)
[2016-11-22] MEDS: Polyethylene Glycol 3350 17 GM Packet PO SCH (09:10)
[2016-11-22] MEDS: Folic Acid 1 MG TAB PO SCH (09:10)
[2016-11-22] MEDS: Multivitamin W/ Minerals 1 TAB PO SCH (09:10)
[2016-11-22] MEDS: FLUoxetine HCl 10 MG CAP PO SCH (09:10)
[2016-11-22] MEDS: Cyclobenzaprine 10 MG TAB PO PRN ×2 (09:13→21:00)
[2016-11-22] MEDS: Acetaminophen/Codeine 30-300mg Tablet PO PRN ×2 (09:13→21:00)
--- NOTE | 2016-11-22 13:51 | PRG ---
DATE OF SERVICE: 11/22/2016 HISTORY OF PRESENT ILLNESS: Mr. Reese is a very pleasant 65-year-old white male that fell and frac tured his patella. He was taken to [facility] where it was repaired. Unfortunately, he got an instruction that he had to go back to the bed for incision and drainage. Olivia abdi also had his patella removed at that time. He was seen by Dr. Palumbo and Dr. Palumbo recommended steffi openem 1 gram q.8 hours. He has had that for 4-1/2 weeks and he is recommending another week and a half. The patient has no complaints today except he feels a little tired and his right leg is bothering hi m quite a bit since he walked so much yesterday, 300+ feet. PHYSICAL EXAMINATION: VITAL SIGNS: Today reveal blood pressure 145/75, pulse 78-83, respirations 20, O2 sat 99%, T-max is 95.4. GENERAL: This is a well-developed, well-nourished, very pleasant white male in no apparent distress at this time. HEENT: Reveals normocephalic, nontraumatic cranium. Pupils are equally round and reactive. Extrao cular movements intact. Nose and throat are slightly dry. NECK: Supple, without mass, nodes or bruits. CHEST: Clear to auscultation, no rales, rhonchi, wheezes or cough is heard. HEART: Reveals irregularly irregular rate and rhythm without murmurs, gallops or rubs. ABDOMEN: Obese, soft, nontender, without organomegaly, normal bowel sounds are noted. No rebound o r guarding is noted. GENITOURINARY: Deferred. EXTREMITIES: Reveal right knee still with wound VAC on, slowly improving. IMPRESSION: 1. Infected right knee growing Pseudomonas, Proteus and Enterococcus. 2. Dr. Palumbo requested want approximately 2 extra weeks of meropenem 1 gram q.8 hours. 3. Continue wound VAC. 4. Severe peripheral arterial disease, status post right [id number], vascular endarterectomy an d stents x2 by Dr. Jaimes. 4. Chronic atrial fibrillation. 5. Hypertension. 6. Chronic anticoagulation. 7. Peripheral vascular disease. 8. Benign prostatic hypertrophy. 9. Malnutrition. 10. Gout. 11. Generalized weakness. 12. Anxiety/depressive disorder. PLAN: 1. Continue meropenem q. 8 hours for another week and a half. 2. Contact Dr. Palumbo with CRP, C-reactive protein, CBC on Friday. 3. We will send picture to Dr. Palumbo, so the patient's knee on Friday. 4. Labs already been ordered for Friday. 5. Continue physical therapy and occupational therapy. 6. Continue wound VAC. 7. Continue wound care. 8. Continue anticoagulation. 9. Continue decubitus precautions 10. Deep venous thrombosis and stress ulcer prophylaxis.
[2016-11-23] MEDS: Meropenem 1 GM in Sodium Chloride 0.9% 100 ML IVPB SCH ×3 (05:02→21:34)
[2016-11-23] MEDS: Saccharomyces boulardii 250 MG CAP PO SCH (08:54)
[2016-11-23] MEDS: Rivaroxaban 10 MG TAB PO SCH (08:54)
[2016-11-23] MEDS: Polyethylene Glycol 3350 17 GM Packet PO SCH (08:54)
[2016-11-23] MEDS: Multivitamin W/ Minerals 1 TAB PO SCH (08:55)
[2016-11-23] MEDS: Digoxin 0.125 MG TAB PO SCH (08:55)
[2016-11-23] MEDS: FLUoxetine HCl 10 MG CAP PO SCH (08:55)
[2016-11-23] MEDS: Folic Acid 1 MG TAB PO SCH (08:56)
[2016-11-23] MEDS: Clopidogrel Bisulfate 75 MG TAB PO SCH (08:56)
--- NOTE | 2016-11-23 15:13 | PRG ---
DATE OF SERVICE: 11/23/2016 SUBJECTIVE: Mr. Reese is doing well. Denies any complaints, tolerating his antibiotics and his wo und VAC. OBJECTIVE: VITAL SIGNS: He is afebrile, heart rate is 82, respirations are 18, oxygen saturation is 100%, bloo d pressure 127/80. CARDIOVASCULAR: S1, S2 plus. RESPIRATORY: Normal vesicular breath sounds. ABDOMEN: Soft, nontender, bowel sounds heard in all quadrants. EXTREMITIES: Without cyanosis or clubbing. IMPRESSION: 1. Right knee septic arthritis, on the wound VAC placement. 2. Peripheral arterial disease. 3. Chronic atrial fibrillation. 4. Hypertension. 5. Benign prostatic hypertrophy. PLAN: 1. Continue wound VAC. 2. Nutritional support. 3. DVT and stress ulcer prophylaxis. 4. Decubitus precautions. 5. Weekly laboratory values have been ordered for Friday.
[2016-11-24 05:25] LABS: #Basophils 0.1 thou/uL (0.0-0.2); #Eosinphils 0.7 thou/uL (0.0-0.7); #Lymphocytes 1.2 thou/uL (1.20-3.40); #Monocytes 1.1 thou/uL (0.11-0.59); #Neutrophils 5.8 thou/uL (1.40-6.50); %Basophils 1.5 % (0.0-1.0); %Eosinophils 7.4 % (0.0-10.0); %Lymphocytes 13.5 % (21.0-51.0); %Monocytes 12.4 % (0.0-10.0); Hematocrit 33.4 % (42.0-52.0); Mean Platelet Volume 5.9 fL (7.4-10.4); Red Blood Cell (RBC) Count 3.64 mill/uL (4.70-6.10); White Blood Cell (WBC) Count 8.8 thou/uL (4.8-10.8)
[2016-11-24 05:41] LABS: ALT (SGPT) 19 U/L (0-55); AST (SGOT) 19 U/L (5-34); Alkaline Phosphatase 101 U/L (40-150); Anion Gap 14 mmol/L (10-20); BUN (Urea Nitrogen) 33 mg/dL (8.4-25.7); Bilirubin, Total 0.8 mg/dL (0.2-1.2); Calc. Creatinine Clearance 89 mL/min (70-130); Calcium 9.4 mg/dL (7.8-10.44); Carbon Dioxide 25 mmol/L (23-31); Chloride 102 mmol/L (98-107); Estimated GFR-MDRD Greater than 90; Globulin 3.6 g/dL (2.4-3.5); Protein, Total 7.2 g/dL (5.8-8.1)
[2016-11-24] MEDS: Meropenem 1 GM in Sodium Chloride 0.9% 100 ML IVPB SCH ×3 (06:25→21:39)
[2016-11-24] MEDS: Acetaminophen/Codeine 30-300mg Tablet PO PRN (07:43)
[2016-11-24] MEDS: FLUoxetine HCl 10 MG CAP PO SCH (09:20)
[2016-11-24] MEDS: Rivaroxaban 10 MG TAB PO SCH (09:20)
[2016-11-24] MEDS: Polyethylene Glycol 3350 17 GM Packet PO SCH (09:20)
[2016-11-24] MEDS: Digoxin 0.125 MG TAB PO SCH (09:20)
[2016-11-24] MEDS: Multivitamin W/ Minerals 1 TAB PO SCH (09:21)
[2016-11-24] MEDS: Folic Acid 1 MG TAB PO SCH (09:21)
[2016-11-24] MEDS: Saccharomyces boulardii 250 MG CAP PO SCH (09:21)
[2016-11-24] MEDS: Clopidogrel Bisulfate 75 MG TAB PO SCH (09:22)
--- NOTE | 2016-11-25 00:13 | PRG ---
DATE OF SERVICE: 11/24/2016 SUBJECTIVE: Mr. Reese is doing well. Denies any complaints, resting comfortably. His daughter is in the room. OBJECTIVE: VITAL SIGNS: He is afebrile, heart rate is 87, respirations 18, oxygen saturation is 98%, blood pre ssure is 129/78. CARDIOVASCULAR: S1, S2 plus. RESPIRATORY: Normal vesicular breath sounds. ABDOMEN: Soft, nontender, bowel sounds heard in all quadrants. EXTREMITIES: Without cyanosis or clubbing. Right knee with wound VAC. LABORATORY VALUES: White count is 8.8, H\T\H is 10.8 and 33.4. Sed rate is down to 84 from 99. So dium 137, potassium 4.3, BUN and creatinine is 33.78. CRP is down to 1.36 from 2.06. IMPRESSION: 1. Right knee septic arthritis. 2. Deconditioning. 3. Malnutrition. 4. Benign prostatic hypertrophy. PLAN: 1. Continue current medications. 2. Continue IV antibiotics. 3. Fax results to Dr. Palumbo. 4. DVT and stress ulcer prophylaxis. 5. Wound VAC. 6. Dr. Juaquin Weldon back tonight.
[2016-11-25] MEDS: Meropenem 1 GM in Sodium Chloride 0.9% 100 ML IVPB SCH (06:00)
[2016-11-25] MEDS: Acetaminophen/Codeine 30-300mg Tablet PO PRN ×3 (08:28→21:34)
[2016-11-25] MEDS: Clopidogrel Bisulfate 75 MG TAB PO SCH (08:29)
[2016-11-25] MEDS: Saccharomyces boulardii 250 MG CAP PO SCH (08:29)
[2016-11-25] MEDS: Digoxin 0.125 MG TAB PO SCH (08:30)
[2016-11-25] MEDS: Polyethylene Glycol 3350 17 GM Packet PO SCH (08:30)
[2016-11-25] MEDS: Folic Acid 1 MG TAB PO SCH (08:30)
[2016-11-25] MEDS: Rivaroxaban 10 MG TAB PO SCH (08:30)
[2016-11-25] MEDS: Multivitamin W/ Minerals 1 TAB PO SCH (08:30)
[2016-11-25] MEDS: FLUoxetine HCl 10 MG CAP PO SCH (08:30)
--- NOTE | 2016-11-25 11:07 | PRG ---
DATE OF SERVICE: 11/25/2016 DATE OF ADMISSION: 10/22/2016 HISTORY OF PRESENT ILLNESS: Mr. Reese is a very pleasant 65-year-old white male that fell at home. He fractured his patella and ended up going to [facility] where that was repaired. Unfortunately, he got an infection and had to return for an incision and drainage don e. The patella was removed at that time. He was seen in consultation by Dr. Palumbo who recommended meropenem 1 gram every 8 hours that is now at 5 weeks. The patient has no complaints today except h e is wanting to go home. He walked a total of 300 feet last week. OBJECTIVE: Vital Signs: Today revealed his blood pressure this morning was 138/79, pulse 77-87, re spirations 16-19, O2 sat 100%, T-max is 97.5. LABORATORY DATA: Yesterday, revealed a white count of 8800 with hemoglobin of 10.8, hematocrit 33.4 . His sed rate is 84 which is down from 99 last week. Sodium is 137, potassium 4.3, chloride 102, carbon dioxide 25 with a BUN of 33, creatinine 0.78. His C-reactive protein is 1.36, which is down from 2.06 last week. PHYSICAL EXAMINATION: GENERAL: This is a well-developed, well-nourished, very thin white male in no apparent distress at this time. HEENT: Reveals normocephalic, nontraumatic cranium. Pupils are equally round and reactive. Extrao cular movements are intact. Nose and throat were slightly dry. NECK: Supple, without masses, nodes or bruits. CHEST: Clear to auscultation. No rales, rhonchi or wheezes are heard. CARDIOVASCULAR: Heart reveals a regular rate and rhythm without murmurs, gallops or rubs. ABDOMEN: Obese, soft, nontender, without organomegaly. Normal bowel sounds were noted. No rebound or guarding was noted. : Deferred. EXTREMITIES: Reveal right knee still with wound VAC, slowly improving. The patient states, he took pictures on Friday and sent those to Dr. Palumbo. IMPRESSION: 1. Effective right knee growing Pseudomonas, Proteus, Enterococcus, still on meropenem. 2. Improved sedimentation rate and C-reactive protein. 3. The labs and the pictures have been sent to Dr. Palumbo, we will await his decision if he needs an other week or two of meropenem. 4. Continue wound VAC at this time. 5. Severe peripheral arterial disease, status post right [id number] vascular endarterectomy and stents x2 by Dr. Jaimes. 6. Chronic atrial fibrillation. 7. Hypertension. 8. Chronic anticoagulation. 9. Peripheral vascular disease. 10. Benign prostatic hypertrophy. 11. Malnutrition. 12. Gout. 13. Generalized weakness. 14. Anxiety and depressive disorder. PLAN: 1. Continue meropenem every 8 hours for another week and a half or for another several days. 2. Continue Dr. Palumbo for C-reactive protein, sed rate, and CBC today. 3. Dr. Palumbo should have had pictures sent to him last Friday. 4. Continue physical therapy and occupational therapy. 5. Continue wound VAC. 6. Continue wound care. 7. Continue anticoagulation. 8. Continued decubitus precautions. 9. Continue deep venous thrombosis and stress ulcer prophylaxis.
[2016-11-26] MEDS: Saccharomyces boulardii 250 MG CAP PO SCH (08:12)
[2016-11-26] MEDS: FLUoxetine HCl 10 MG CAP PO SCH (08:12)
[2016-11-26] MEDS: Digoxin 0.125 MG TAB PO SCH (08:12)
[2016-11-26] MEDS: Clopidogrel Bisulfate 75 MG TAB PO SCH (08:12)
[2016-11-26] MEDS: Rivaroxaban 10 MG TAB PO SCH (08:12)
[2016-11-26] MEDS: Multivitamin W/ Minerals 1 TAB PO SCH (08:12)
[2016-11-26] MEDS: Folic Acid 1 MG TAB PO SCH (08:13)
[2016-11-26] MEDS: Polyethylene Glycol 3350 17 GM Packet PO SCH (08:13)
--- NOTE | 2016-11-26 10:12 | PRG ---
DATE OF SERVICE: 11/26/2016 HISTORY OF PRESENT ILLNESS: Mr. Reese is a very pleasant 65-year-old white male with a fractured p atella. He went to [facility] where it was repaired by Dr. Infante. The patien t's incision got infected and he was sent back to [facility] where an incision a nd drainage was done and culture and sensitivities were done. The patient's patella was removed. Blessing Palumbo recommended meropenem 1 gram q.8 h. for 5-1/2-6 weeks. The patient finished that yesterday . We put a call into Dr. Palumbo who saw the patient's lab work and felt that we could discontinue the a ntibiotics at this time. He has no other complaints at this time. Dr. Palumbo recommended we continue with wound care at this time until the cover heals over the bone. The patient has no complaints. He states he has hired 2 people to take care of him at home and he i s ready to go home whenever wound care and wound VAC can be set up, hopefully in the next day or two . I talked with the nurse and we have contacted the machine adjuster leader case trim about getting him in. Previously he has used [facility]. VITAL SIGNS: Today reveal blood pressure 118/66, pulse 77 to 86, respirations 19, O2 sat 97%, tempe rature 97.6 PHYSICAL EXAMINATION: GENERAL: This is a well-developed, very thin white male in no apparent distress at this time. HEENT: Reveals normocephalic, nontraumatic cranium. Pupils are equally round and reactive. Extrao cular movements intact. Nose and throat are slightly dry. NECK: Supple, without masses, nodes or bruits. CHEST: Clear to auscultation. No rales, rhonchi or wheezes are heard. CARDIOVASCULAR: Reveals a regular rate and rhythm without murmurs, gallops or rubs. ABDOMEN: Soft, nontender, without organomegaly, normal bowel sounds are noted. No rebound or guard ing is noted. : Deferred. EXTREMITIES: Reveal right knee and a wound VAC which is slowly improving. The patient still has hi s knee immobilizer on. We have discussed getting a different type of knee brace with hinges that is lockable. IMPRESSION: 1. Right knee growing Pseudomonas, Proteus, Enterococcus. The patient finished his meropenem last night. Discontinued by Dr. Palumbo. 2. Improve sedimentation rate and C-reactive protein. 3. Continue wound VAC at this time. 4. Continue wound care at this time. 5. Severe peripheral arterial disease status post right [id number] vascular endarterectomy, hien nts x2 by Dr. Jaimes. 6. Chronic atrial fibrillation. 7. Hypertension. 8. Chronic anticoagulation. 9. Peripheral vascular disease. 10. Benign prostatic hypertrophy. 11. Malnutrition. 12. Gout. 13. Generalized weakness and some anxiety depressive disorder. PLAN: 1. Meropenem has been stopped. 2. Making arrangements with the high school social science teacher and case management to get him discharged to home wit h wound care and wound VAC. 3. Continue with weekly pictures. 4. Continue physical therapy and occupational therapy. 5. Continue wound care. 6. Continue anticoagulation. 7. Continue DVT and stress ulcer prophylaxis. 8. Continue decubitus precautions.
[2016-11-26] MEDS: Acetaminophen/Codeine 30-300mg Tablet PO PRN ×2 (11:54→21:31)
[2016-11-26] MEDS: Cyclobenzaprine 10 MG TAB PO PRN (11:54)
[2016-11-26 15:11] VITALS: BMI 21.3
[2016-11-27] MEDS: Acetaminophen/Codeine 30-300mg Tablet PO PRN ×3 (07:18→21:05)
[2016-11-27] MEDS: Rivaroxaban 10 MG TAB PO SCH (09:02)
[2016-11-27] MEDS: Saccharomyces boulardii 250 MG CAP PO SCH (09:02)
[2016-11-27] MEDS: Folic Acid 1 MG TAB PO SCH (09:02)
[2016-11-27] MEDS: FLUoxetine HCl 10 MG CAP PO SCH (09:02)
[2016-11-27] MEDS: Digoxin 0.125 MG TAB PO SCH (09:02)
[2016-11-27] MEDS: Multivitamin W/ Minerals 1 TAB PO SCH (09:03)
[2016-11-27] MEDS: Clopidogrel Bisulfate 75 MG TAB PO SCH (09:03)
[2016-11-27] MEDS: Polyethylene Glycol 3350 17 GM Packet PO SCH (09:05)
--- NOTE | 2016-11-27 11:16 | PRG ---
DATE OF SERVICE: 11/27/2016 HISTORY OF PRESENT ILLNESS: Mr. Reese is a very pleasant 66-year-old white male that fell and frac tured his patella. He went to [facility] and had Dr. Infante repair that. Unfo rtunately, the repair became infected and he went back to [facility] where an i ncision and drainage was done and culture and sensitivities were done. The patient's patella was ev entually removed. Dr. Palumbo send him over here for meropenem 1 gram q.8 h. for 5-1/2 to 6 weeks. T he patient finished his antibiotics and is still getting wound care. We are trying to make arrangem ents for a wound VAC for him to go home on. It has not arrived yet. The patient has no complaints. He has 2 people hired waiting for him to come home, they will help t tracy care of him. We are trying to make arrangements to get the wound VAC set up and hopefully he ca n go home in the next day or two. VITAL SIGNS: Today reveal blood pressure is 124/73, pulse 74-82, respirations 18, O2 sat 96% on mona m air, temperature max is 96.8. PHYSICAL EXAMINATION: GENERAL: This is a well-developed, well-nourished, very pleasant white male in no apparent distress at this time. HEENT: Reveals normocephalic, nontraumatic cranium. Pupils are equally round and reactive. Extrao cular movements intact. Nose and throat slightly dry. NECK: Supple, without masses, nodes or bruits. CHEST: Clear to auscultation. No rales, rhonchi or wheezes are heard. CARDIOVASCULAR: Reveals a regular rate and rhythm without murmurs, gallops or rubs. ABDOMEN: Scaphoid, soft, nontender, without organomegaly, normal bowel sounds are noted. No reboun d or guarding is noted. : Deferred. EXTREMITIES: Reveal total right knee with a wound VAC still in place. It is slowly improving, but it needs continued wound VAC care and wound care. Apparently home health will be able to start seei ng him for wound care on Friday. We will try to get his wound VAC on and get him home. His wound V AC is going to need to be changed every 72 hours. IMPRESSION: 1. Right knee growing Pseudomonas, Proteus, Enterococcus. Finish his antibiotics yesterday. These were discontinued by Dr. Palumbo. 2. Improved sed rate and C-reactive protein, but not back to normal. 3. We will continue wound VAC at this time. 4. Continue wound care. 5. Severe peripheral arterial disease, status post below the knee vascular endarterectomy and stent s x2 by Dr. Jaimes. 6. Chronic atrial fibrillation. 7. Hypertension. 8. Chronic anticoagulation. 9. Peripheral vascular disease. 10. Benign prostatic hypertrophy. 11. Malnutrition. 12. Gout. 13. Generalized weakness. 14. Anxiety depressive disorder. PLAN: 1. Continue wound VAC. 2. Continue wound care. 3. Continue weekly pictures. 4. Continue physical therapy and occupational therapy. 5. The patient is walking much better. He has several rests. 6. Continue anticoagulation. 7. Continue DVT and stress ulcer prophylaxis. 8. Continue decubitus precautions.
[2016-11-27] MEDS: Cyclobenzaprine 10 MG TAB PO PRN (21:05)
[2016-11-28] MEDS: Cyclobenzaprine 10 MG TAB PO PRN ×2 (04:18→21:29)
[2016-11-28] MEDS: Acetaminophen/Codeine 30-300mg Tablet PO PRN ×3 (04:18→22:07)
[2016-11-28] MEDS: Clopidogrel Bisulfate 75 MG TAB PO SCH (08:24)
[2016-11-28] MEDS: Rivaroxaban 10 MG TAB PO SCH (08:24)
[2016-11-28] MEDS: Digoxin 0.125 MG TAB PO SCH (08:24)
[2016-11-28] MEDS: FLUoxetine HCl 10 MG CAP PO SCH (08:24)
[2016-11-28] MEDS: Saccharomyces boulardii 250 MG CAP PO SCH (08:24)
[2016-11-28] MEDS: Folic Acid 1 MG TAB PO SCH (08:24)
[2016-11-28] MEDS: Multivitamin W/ Minerals 1 TAB PO SCH (08:25)
[2016-11-28] MEDS: Polyethylene Glycol 3350 17 GM Packet PO SCH (08:26)
--- NOTE | 2016-11-28 17:06 | PRG ---
DATE OF SERVICE: 11/28/2016 DATE OF ADMISSION: 10/22/2016 HISTORY OF PRESENT ILLNESS: Mr. Reese is a very pleasant 66-year-old white male who was at home wh en he fell and fractured his patella. He was taken to the [facility], where Dr. Infante repair that. Unfortunately, that kneecap became infected. He was transferred [facility] to [facility] where incision and drainage was done in the patellars r emoved. The patient was sent back after seeing Dr. Palumbo and was placed on meropenem 1 gram q.8 radha rs for 6 weeks. The patient finishes antibiotics and we are preparing to get Mr. Reese discharged [facility], so he can go home with a wound VAC. OBJECTIVE: VITAL SIGNS: Blood pressure this morning was 126/78, pulse 78-95, respirations 16-18, O2 sat 95-98% and temperature max is 97.3. GENERAL: This is a well-developed, well-nourished, very pleasant white male who is very skinny in n o apparent distress at this time. HEENT: Reveals normocephalic, nontraumatic cranium. Pupils are equally round and reactive. Extrao cular movements intact. Nose and throat are dry. NECK: Supple, without masses, nodes or bruits. CHEST: Clear to auscultation. No rales, rhonchi or wheezes are heard. CARDIOVASCULAR: Reveals a regular rate and rhythm without murmurs, gallops or rubs. ABDOMEN: Soft, scaphoid, nontender, without organomegaly, normal bowel sounds are noted. No reboun d or guarding is noted. : Deferred. EXTREMITIES: Reveal total right knee with wound VAC still in place, still continues to slowly heal. The patient will be discharged home for wound VAC after he arrives today or tomorrow. We will be rueda ving encompass come out and follow back. IMPRESSION: 1. Right knee growing Pseudomonas, Proteus, Enterococcus. 2. Finish antibiotics. 3. Improve sed rate was C-reactive protein, but not back to normal. 4. Continue wound VAC at this time. 5. Continue wound care. 6. Severe peripheral artery disease, status post below the knee vascular endarterectomy and stents x2 by Dr. Jaimes. 7. Chronic atrial fibrillation. 8. Hypertension. 9. Chronic anticoagulation. 10. Peripheral vascular disease. 11. Benign prostatic hypertrophy. 12. Malnutrition. 13. Gout. 14. Generalized weakness. 15. Anxiety depressive disorder. PLAN: 1. The patient will be discharged on Friday after the home wound VAC is applied. 2. [facility], who have to evaluate the patient within 12 hours of discharge and see if he has problems with a wound VAC over the weekend. 3. On Friday. he has appointment with Bernad[facility] in [place] at 11:00 fo r a dressing change. 4. Friday, on 12/09/2016, he has appointment with Dr. Woods at 11:00; we have to early 15 minutes already for the paperwork for her first available appointment. 5. The wound VAC should be in by Friday. 6. [facility] Center's phone number is [phone]. 7. Continue wound care. 8. Continue physical therapy, occupational therapy outpatient. 9. Continue anticoagulation. 10. Continue DVT and stress ulcer prophylaxis. 11. Continue decubitus precautions.
[2016-11-29] MEDS: Acetaminophen/Codeine 30-300mg Tablet PO PRN (07:34)
[2016-11-29] MEDS: Cyclobenzaprine 10 MG TAB PO PRN (07:35)
[2016-11-29 08:10] VITALS: BP 116/70; TEMP 96.5
[2016-11-29] MEDS: Saccharomyces boulardii 250 MG CAP PO SCH (09:01)
[2016-11-29] MEDS: Multivitamin W/ Minerals 1 TAB PO SCH (09:01)
[2016-11-29] MEDS: FLUoxetine HCl 10 MG CAP PO SCH (09:02)
[2016-11-29] MEDS: Digoxin 0.125 MG TAB PO SCH (09:02)
[2016-11-29] MEDS: Rivaroxaban 10 MG TAB PO SCH (09:02)
[2016-11-29] MEDS: Clopidogrel Bisulfate 75 MG TAB PO SCH (09:02)
[2016-11-29] MEDS: Folic Acid 1 MG TAB PO SCH (09:03)
[2016-11-29] MEDS: Polyethylene Glycol 3350 17 GM Packet PO SCH (09:04)
--- NOTE | 2016-11-29 12:16 | DIS ---
DATE OF ADMISSION: 10/22/2016 DATE OF DISCHARGE: 11/29/2016 HOSPITAL SUMMARY: Mr. Reese is a very pleasant 66-year-old white male that unfortunately when he w as at home, he fell and fractured his patella. He was taken to [facility] where Dr. Infante repaired it. Unfortunately, the patient's kneecap became infected. He was transferred back to [facility] where incision and drainage was done. The patella was also removed. The patient was sent back to [facility] after consultation by Dr. Deepali eduardo he was placed on meropenem 1 gram q.8 hours for 5-6 weeks. The patient has finished the antibiotics. Mr. Reese is ready for discharge and we are awaiting the arrival of his wound VAC, which should come in earlier this morning. After that, I have already ta lked with him about instructions. He has all of his medications at home except for his Tylenol #3. When the wound VAC comes in, wound care will change his dressing and he will be discharged to home. It is expected that Home health will pick him up at home, make sure he is doing well and follow hi m over the weekend. DISCHARGE MEDICATIONS: Include the followin. Tylenol with codeine and Tylenol No. 3 one q.6 hours, prescription for 40 pills has been written for the patient. 2. Plavix 75 mg half pill each day. 3. Diltiazem CD 120 mg b.i.d. 4. Digoxin 125 mcg daily. 5. Xarelto 10 mg daily. 6. Fluoxetine 10 mg each morning. 7. Folic acid 1 mg daily. 8. Multivitamin 1 daily. 9. Florastor 250 mg daily. 10. Thiamine 100 mg daily. 11. Aspirin 81 mg daily. 12. Protonix 40 mg twice daily. 13. Flexeril 10 mg 3 times a day p.r.n. muscle spasms. The patient after discussion with me states he has all his medicines, he had refilled them coming t o the hospital and he has all his medicines in home. He needs no prescriptions except for his Tylen ol No. 3. PHYSICAL EXAMINATION: GENERAL: This is a well-developed, well-nourished, very pleasant, thin white male in no apparent di stress at this time. HEENT: Reveals normocephalic, nontraumatic cranium. Pupils are equally round and reactive. Extrao cular movements intact. Nose and throat are slightly dry. NECK: Supple, without masses, nodes or bruits. CHEST: Clear to auscultation, but distant. HEART: Reveals a irregularly irregular rate and rhythm without murmurs, gallops or rubs. ABDOMEN: Soft, nontender, somewhat scaphoid without organomegaly. Normal bowel sounds are noted. No rebound or guarding is noted. GENITOURINARY: Deferred. EXTREMITIES: Reveal no clubbing, cyanosis or edema. Right leg is still braced and has a wound VAC connected. PICC line has been removed. NEUROLOGIC: The patient is nonfocal and actually doing very well. ASSESSMENT: 1. Polymicrobial postoperative wound infection with abscess, status post incision and drainage of t he right kneecap and removal of the patella. 2. Several weeks of wound care and wound VAC. 3. A 5-6 weeks of meropenem. 4. Severe peripheral arterial disease, status post vascular endarterectomy and stents x2 by Dr. Zechariah lema. 5. Hypertension. 6. Chronic atrial fibrillation. 7. Chronic anticoagulation. 8. Peripheral vascular disease. 9. Benign prostatic hypertrophy. 10. Calorie protein malnutrition. 11. Gout. 12. Generalized anxiety. 13. Generalized weakness. PLAN: 1. The patient is supposed to receive his wound VAC this morning. Wound care will change his dress ing. 2. Patient will go home with orders for [facility] to evaluate the patient within 12 radha rs of discharge in case he has any wound VAC issues over the weekend. 3. On Friday12/02/2016, patient has appointment with Dr. Bernadette Lisa at the [facility] in [facility] at 11:00 for the dressing change. That [facility] number is [phone]. 4. The following week on Friday12/09/2016, the patient has appointment with Dr. Woods at 11:00, so we need to arrive there early for paperwork. This is the first available spot. 5. The wound VAC should come in this morning and be applied and he will be discharged around lunch or right after the lunch. The patient will be sent home with some extra supplies for his wound VAC. 6. Continue home health with physical therapy and occupational therapy, and wound care per [facility]. 7. Continue wound care, wound VAC. 8. Continue present medications. 9. Continue deep venous thrombosis and stress ulcer prophylaxis. 10. Continue decubitus precautions. 11. I have informed the patient that he needs to call me earlier next week and let me know how he i s doing, and want to stay ahead of any problems.
== END 2016-11-29 10:35 | disposition home health service (06) | DRG 949 ==
LOC: NAV ACUTE 14:11
PROVIDERS: ADMIT Family Medicine; ATTEND Family Medicine
DX: T81.4XXD Infection following a procedure, subsequent encounter (principal); E46 Unspecified protein-calorie malnutrition; M00.861 Arthritis due to other bacteria, right knee; I48.2 Chronic atrial fibrillation; I10 Essential (primary) hypertension; B96.5 Pseudomonas (aeruginosa) (mallei) (pseudomallei) as the cause of diseases classified elsewhere; L02.415 Cutaneous abscess of right lower limb; Y83.8 Other surgical procedures as the cause of abnormal reaction of the patient, or of later complication, without mention of misadventure at the time of the procedure; Z79.01 Long term (current) use of anticoagulants; Z79.82 Long term (current) use of aspirin; F17.210 Nicotine dependence, cigarettes, uncomplicated; I73.9 Peripheral vascular disease, unspecified; N40.0 Benign prostatic hyperplasia without lower urinary tract symptoms; F41.8 Other specified anxiety disorders; M10.9 Gout, unspecified; B96.4 Proteus (mirabilis) (morganii) as the cause of diseases classified elsewhere; B95.2 Enterococcus as the cause of diseases classified elsewhere; R53.1 Weakness; Z95.0 Presence of cardiac pacemaker; Z68.20 Body mass index [BMI] 20.0-20.9, adult
CPT/HCPCS: 36415; 80053; 84134; 85025; 85652; 86140; 87070; 87205; A4216; C1751; J2185; J7050

== ENCOUNTER 2017-01-30 13:01 | Outpatient (CLI) | payer MEDICARE ==
[2017-01-30 13:37] LABS: Anion Gap 14 mmol/L (10-20); BUN (Urea Nitrogen) 20 mg/dL (8.4-25.7); Calc. Creatinine Clearance 0 mL/min (70-130); Calcium 9.5 mg/dL (7.8-10.44); Carbon Dioxide 22 mmol/L (23-31); Chloride 98 mmol/L (98-107); Estimated GFR-MDRD Greater than 90; Glucose 110 mg/dL (80-115); Potassium 4.4 mmol/L (3.5-5.1); Sodium 130 mmol/L (136-145); Uric Acid 6.1 mg/dL (3.5-7.2)
[2017-01-30 14:03] LABS: #Basophils 0.1 thou/uL (0.0-0.2); #Eosinphils 0.3 thou/uL (0.0-0.7); #Lymphocytes 1.4 thou/uL (1.20-3.40); #Monocytes 1.4 thou/uL (0.11-0.59); #Neutrophils 7.9 thou/uL (1.40-6.50); %Basophils 1.2 % (0.0-1.0); %Eosinophils 2.7 % (0.0-10.0); %Lymphocytes 12.8 % (21.0-51.0); %Monocytes 12.4 % (0.0-10.0); %Neutrophils 70.9 % (42.0-75.0); Hemoglobin 11.7 g/dL (14.0-18.0); Mean Corpuscular HGB CONC 32.5 g/dL (32.0-36.0); Mean Corpuscular Hemoglobin 28.4 pg (27.0-31.0); Mean Corpuscular Volume 87.6 fl (80.0-94.0); Platelet Count 360 thou/uL (130-400); Red Blood Cell (RBC) Count 4.13 mill/uL (4.70-6.10); White Blood Cell (WBC) Count 11.1 thou/uL (4.8-10.8)
--- NOTE | 2017-01-30 17:50 | ULT ---
ULTRASOUND WITH DOPPLER DUPLEX VENOUS LOWER EXTREMITY RIGHT: 01/30/17 HISTORY: 58-year-old male with ICD-10: M25.471, Z79.899, and I48.2. Right foot swelling for one week. History of previous DVT. Mariela, the clinical lab technologist, discussed the findings with Dr. Weldon, who was present during the scanning. TECHNIQUE: Color flow Doppler, spectral waveform analysis of pulsed Doppler, and hinojosa-scale imaging with compre ssion and augmentation, were used to evaluate the right common femoral, femoral, popliteal, posterio r tibial, and superficial femoral, veins; and the proximal portions of the profunda femoral and grea ter saphenous, veins. FINDINGS: There is only partial compressibility, due to thrombosis, of the proximal portion of the femoral vei n, which does have blood flow. There is absence of blood flow, and noncompressibility due to thrombo sis, of the mid and distal portions of the femoral vein. There is thrombus in the popliteal vein and its trifurcation, but there is blood flow there. There is no thrombosis of the posterior tibial vei n, greater saphenous vein, common femoral vein, or profunda femoral vein. The thrombosed veins are n ot distended. It is indeterminate whether the thromboses are chronic or acute. Incidentally, There i s absence of blood flow in the superficial femoral artery. This has been known prior to this study. IMPRESSION: 1. Deep vein thrombosis at multiple points in the right lower extremity, some occlusive and oth ers not occlusive. 2. It is indeterminate whether these are chronic or acute thromboses. 3. 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 ROXANA Kebede POS: KERI
== END 2017-01-30 13:02 | disposition home or self-care (01) ==
LOC: NAV ULT 13:01
PROVIDERS: ATTEND Family Medicine
DX: M25.471 Effusion, right ankle (principal); I48.2 Chronic atrial fibrillation; Z79.899 Other long term (current) drug therapy; I82.401 Acute embolism and thrombosis of unspecified deep veins of right lower extremity; I82.511 Chronic embolism and thrombosis of right femoral vein
CPT/HCPCS: 36415; 80048; 84550; 85025

== ENCOUNTER 2017-04-17 09:06 | Outpatient (CLI) | payer MEDICARE ==
[2017-04-17 12:32] LABS: #Basophils 0.1 thou/uL (0.0-0.2); #Eosinphils 0.3 thou/uL (0.0-0.7); #Lymphocytes 1.3 thou/uL (1.20-3.40); #Monocytes 0.9 thou/uL (0.11-0.59); #Neutrophils 7.5 thou/uL (1.40-6.50); %Basophils 0.9 % (0.0-1.0); %Lymphocytes 12.8 % (21.0-51.0); %Monocytes 8.9 % (0.0-10.0); %Neutrophils 74.4 % (42.0-75.0); Hemoglobin 12.8 g/dL (14.0-18.0); Mean Corpuscular HGB CONC 32.8 g/dL (32.0-36.0); Mean Corpuscular Hemoglobin 29.7 pg (27.0-31.0); Mean Corpuscular Volume 90.4 fl (80.0-94.0); Mean Platelet Volume 5.3 fL (7.4-10.4); Platelet Count 371 thou/uL (130-400); RBC Distribution Width 14.3 % (11.5-14.5); Red Blood Cell (RBC) Count 4.32 mill/uL (4.70-6.10)
[2017-04-17 12:55] LABS: ALT (SGPT) 15 U/L (8-55); AST (SGOT) 23 U/L (5-34); Albumin 3.9 g/dL (3.4-4.8); Alkaline Phosphatase 93 U/L (40-150); Anion Gap 20 mmol/L (10-20); BUN (Urea Nitrogen) 10 mg/dL (8.4-25.7); Bilirubin, Direct 0.4 mg/dL (0.1-0.3); Bilirubin, Total 0.6 mg/dL (0.2-1.2); Calc. Creatinine Clearance 0 mL/min (70-130); Calcium 8.8 mg/dL (7.8-10.44); Carbon Dioxide 20 mmol/L (23-31); Cardiac Risk 2.1 (Less than 4.5); Chloride 91 mmol/L (98-107); Cholesterol 142 mg/dl (< 200 Desired); Estimated GFR-MDRD Greater than 90; Glucose 72 mg/dL (80-115); HDL Cholesterol 68 mg/dL (>60 Neg Risk); LDL Cholesterol, Calculated 63 mg/dL; Potassium 4.6 mmol/L (3.5-5.1); Protein, Total 6.9 g/dL (5.8-8.1); Sodium 126 mmol/L (136-145); Triglycerides 55 mg/dL (Less than 150)
[2017-04-17 13:28] LABS: Hemoglobin A1c 5.1 % (4.0-6.0)
== END 2017-04-17 09:07 | disposition home or self-care (01) ==
LOC: NAVSJIPCSP 09:06
PROVIDERS: ATTEND Family Medicine
DX: I82.5Z1 Chronic embolism and thrombosis of unspecified deep veins of right distal lower extremity (principal); I10 Essential (primary) hypertension; M62.81 Muscle weakness (generalized); I48.2 Chronic atrial fibrillation; E87.1 Hypo-osmolality and hyponatremia; Z79.899 Other long term (current) drug therapy
CPT/HCPCS: 36415; 80048; 80061; 80076; 83036; 84443; 85025

== ENCOUNTER 2017-05-06 14:51 | Outpatient (CLI) | payer MEDICARE ==
[2017-05-06 20:08] LABS: #Basophils 0.1 thou/uL (0.0-0.2); #Eosinphils 0.2 thou/uL (0.0-0.7); #Monocytes 1.2 thou/uL (0.11-0.59); #Neutrophils 9.4 thou/uL (1.40-6.50); %Basophils 0.7 % (0.0-1.0); %Eosinophils 1.8 % (0.0-10.0); %Lymphocytes 8.6 % (21.0-51.0); %Monocytes 9.9 % (0.0-10.0); %Neutrophils 79.1 % (42.0-75.0); Hemoglobin 10.7 g/dL (14.0-18.0); Mean Corpuscular HGB CONC 32.8 g/dL (32.0-36.0); Mean Corpuscular Hemoglobin 29.9 pg (27.0-31.0); Mean Corpuscular Volume 91.2 fl (80.0-94.0); Mean Platelet Volume 5.5 fL (7.4-10.4); Platelet Count 317 thou/uL (130-400); RBC Distribution Width 14.6 % (11.5-14.5); Red Blood Cell (RBC) Count 3.58 mill/uL (4.70-6.10); White Blood Cell (WBC) Count 11.9 thou/uL (4.8-10.8)
[2017-05-06 20:20] LABS: Anion Gap 13 mmol/L (10-20); BUN (Urea Nitrogen) 10 mg/dL (8.4-25.7); Calc. Creatinine Clearance 0 mL/min (70-130); Calcium 8.7 mg/dL (7.8-10.44); Carbon Dioxide 23 mmol/L (23-31); Chloride 96 mmol/L (98-107); Estimated GFR-MDRD Greater than 90; Glucose 119 mg/dL (80-115); Potassium 4.4 mmol/L (3.5-5.1); Sodium 128 mmol/L (136-145)
== END 2017-05-06 14:52 | disposition home or self-care (01) ==
LOC: NAV LABSP 14:51
PROVIDERS: ATTEND Family Medicine
DX: T81.4XXD Infection following a procedure, subsequent encounter (principal); Z68.20 Body mass index [BMI] 20.0-20.9, adult
CPT/HCPCS: 80048; 84134; 85025

== ENCOUNTER 2019-03-27 13:52 | Emergency (ER) | payer MEDICARE | END 2019-03-27 14:23 | LOC: NAV ERS 13:52 | DX: Z04.1 Encounter for examination and observation following transport accident (principal); I49.9 Cardiac arrhythmia, unspecified; I48.91 Unspecified atrial fibrillation; I10 Essential (primary) hypertension; F17.210 Nicotine dependence, cigarettes, uncomplicated | CPT/HCPCS: 99283 ==